=== PATIENT | female | born 1945 | race Caucasian/White ===

== ENCOUNTER 2016-10-14 | Outpatient (CLI) | payer MEDICARE | END 2016-10-14 19:59 | disposition critical access hospital (66) | CPT/HCPCS: A0425; A0427 ==

== ENCOUNTER 2016-10-14 20:32 | Emergency (ER) | payer MEDICARE ==
[2016-10-14] MEDS ORDERED: SODIUM CHLORIDE 0.9% 1,000 ML IV ONE (20:42)
[2016-10-14] MEDS ORDERED: ONDANSETRON ODT 4 MG TABLET TL STA (22:33)
[2016-10-14] MEDS ORDERED: BENZONATATE 100 MG CAPSULE PO STA (22:34)
[2016-10-14] MEDS ORDERED: BENZONATATE 100 MG CAPSULE PO ONE (22:37)
[2016-10-14] MEDS ORDERED: ONDANSETRON ODT 4 MG TABLET ONE (22:37)
== END 2016-10-14 23:10 | disposition home or self-care (01) ==
DX: I10 Essential (primary) hypertension (principal); K52.9 Noninfective gastroenteritis and colitis, unspecified
CPT/HCPCS: 36415; 71020; 80053; 81001; 83690; 83880; 84484; 85025; 99283; 99284; A9270; Q0162

== ENCOUNTER 2018-02-16 16:06 | Outpatient (CLI) | payer MEDICARE ==
[2018-02-16 16:33] LABS: CREATININE 0.9 mg/dL (0.4-1.0)
[2018-02-16] MEDS ORDERED: IOPAMIDOL-300 100 ML VIAL ONE (16:40)
[2018-02-16] MEDS ORDERED: IOPAMIDOL-300 100 ML VIAL IVP ONE (16:55)
--- NOTE | 2018-02-16 17:19 | CT Report ---
Procedure Date: 02/16/2018 Accession Number: [id number] / [id number] Procedure: CT - Chest W/ CPT Code: FULL RESULT: EXAM: CT CHEST EXAM DATE: 02/16/2018 04:58 PM. CLINICAL HISTORY: SARCOIDOSIS. COMPARISONS: None. TECHNIQUE: Routine helical CT imaging was performed through the chest. IV contrast: 80 cc Isovue 300. Reconstructions: Coronal and sagittal. In accordance with CT protocol optimization, one or more of the following dose reduction techniques were utilized for this exam: automated exposure control, adjustment of mA and/or KV based on patient size, or use of iterative reconstructive technique. FINDINGS: Lungs/Pleura: 8 mm nodule at the left base (4/47), somewhat linear and branching. No confluent consolidation or suspicious mass. No pleural effusions. No endobronchial or endotracheal lesion. Mediastinum: Imaged portions of the thyroid are grossly unremarkable. Thoracic aorta and main pulmonary artery are normal caliber.No central PE. Heart size is within normal limits. No pericardial effusion. Lymph Nodes: No mediastinal, hilar, or axillary adenopathy. Bones: No suspicious osseous lesions. 1.4 cm nodule in the right breast (3/28). Partially Imaged Upper Abdomen: Status post cholecystectomy. IMPRESSION: 1.4 cm nodule in the partially imaged right breast. Dedicated breast imaging is recommended. Neoplasm cannot be excluded. No CT signs of sarcoidosis. 8 mm nodule at the left base. Recommend follow-up CT scan in 3 months as per Fleischner criteria. RADIA
[2018-02-17] MEDS ORDERED: IOPAMIDOL-300 100 ML VIAL IVP ONE (16:16)
== END 2018-02-16 16:07 | disposition home or self-care (01) ==
LOC: LAB 16:06 → DI 16:07
PROVIDERS: ATTEND Specialist
DX: R91.1 Solitary pulmonary nodule (principal); N63.10 Unspecified lump in the right breast, unspecified quadrant
CPT/HCPCS: 36415; 71260; 82565

== ENCOUNTER 2019-05-16 13:26 | Outpatient (CLI) | payer MEDICARE ==
--- NOTE | 2019-05-17 09:39 | DEXA Report ---
Reason: POST-MENOPAUSAL Procedure Date: 05/16/2019 Accession Number: [id number] / [id number] Procedure: DEX - Dexa Spine and/or Hip CPT Code: FULL RESULT: EXAM: Dexa Spine and/or Hip DATE: 05/16/2019 2:11 PM CLINICAL HISTORY: POST-MENOPAUSAL. Rheumatoid arthritis, asthma. History of steroid use. TECHNIQUE: Dual energy x-ray absorptiometry (DXA) was performed on a [employer] System. Regions measured are the AP Spine, femoral neck, and if needed forearm. COMPARISON: None. In accordance with the International Society for Clinical Densitometry (ISCD) guidelines, data from previous exams may be reanalyzed using current recommendations and techniques. This is done to allow a more accurate basis for comparison with the current study. FINDINGS: The data for the lumbar spine is as follows: BMD (g/cm/cm) T-SCORE Z-SCORE REGION L1 1.380 2.1 2.6 L2 1.314 0.9 1.5 L3 1.453 2.1 2.7 L4 1.487 2.4 2.9 TOTAL 1.416 2.0 2.5 NOTE: All evaluable vertebrae are used for classification The data for the hip is as follows: BMD (g/cm/cm) T-SCORE Z-SCORE REGION Neck 0.869 -1.2 -0.1 TOTAL 0.924 -0.7 0.1 NOTE: The femoral neck or total proximal femur, whichever is lowest, is used for classification. IMPRESSION: THE WHO CLASSIFICATION BASED ON THE INTERNATIONAL REFERENCE STANDARD IS OSTEOPENIA, REFERENCE LEFT FEMORAL NECK. THE FRACTURE RISK IS INCREASED. RECOMMENDATION: Patients with diagnosis of osteoporosis or osteopenia should have regular bone mineral density assessment. For those eligible for Medicare, routine testing is allowed once every 2 years. Testing frequency can be increased for patients who have rapidly progressing disease or for those who are receiving medical therapy to restore bone mass. COMMENT: World Health Organization (WHO) definitions for osteoporosis and osteopenia: NORMAL BMD: T-score at -1.0 or higher, fracture risk is low OSTEOPENIA BMD: T-score between -1.0 and -2.5, fracture risk is increased. OSTEOPOROSIS BMD: T-score at -2.5 or lower, fracture risk is high. National Osteoporosis Foundation recommends: 1. Obtain adequate dietary calcium (at least 1200 mg per day) and vitamin D (400-800 international units per day). 2. Participate, as appropriate, in regular weightbearing and muscle-strengthening exercise. 3. Avoid tobacco use and reduce alcohol and caffeine intake. 4. For more detailed information see the website at www.NOF.org.
== END 2019-05-16 13:27 | disposition home or self-care (01) ==
LOC: DI 13:26
PROVIDERS: ATTEND Internal Medicine Hematology & Oncology
DX: M85.88 Other specified disorders of bone density and structure, other site (principal); C50.911 Malignant neoplasm of unspecified site of right female breast
CPT/HCPCS: 77080

== ENCOUNTER 2019-05-22 15:53 | Emergency (ER) | payer MEDICARE ==
[2019-05-22 16:17] LABS: BILIRUBIN,URINE NEGATIVE (NEGATIVE); GLUCOSE, URINE (UA) NEGATIVE (NEGATIVE); KETONES,URINE (UA) NEGATIVE (NEGATIVE); LEUKOCYTE ESTERASE, URINE LARGE (NEGATIVE); NITRITE,URINE NEGATIVE (NEGATIVE); OCCULT BLOOD,URINE LARGE (NEGATIVE); PH,URINE 6.5 PH (5.0-7.5); PROTEIN,URINE NEGATIVE (NEGATIVE); UROBILINOGEN,URINE 0.2 (NORMAL) E.U./dL (NORMAL)
[2019-05-22 16:19] LABS: CLARITY,URINE CLOUDY (CLEAR)
[2019-05-22 16:27] LABS: BACTERIA,URINE Moderate /HPF (None Seen); RBC,URINE TNTC /HPF (0-5); SQUAMOUS EPITHELIAL CELL,UR FEW Squamous (<= Few)
--- NOTE | 2019-05-22 16:31 | ED Physician Documentation ---
PD HPI FEMALE - Stated complaint Stated Complaint: FEM - Chief complaint Chief Complaint: General - History obtained from History obtained from: Patient - History of Present Illness Timing - onset: Yesterday Timing - duration: Days (1) Timing - details: Abrupt onset, Still present Associated symptoms: Dysuria, Urinary frequency. No: Fever, Vaginal discharge, Genital sore/lesion, Hematuria Similar symptoms before: Diagnosis (feels similar to prior UTIs) Recently seen: Not recently seen Review of Systems Constitutional: denies: Fever, Chills, Myalgias GI: denies: Abdominal Pain, Nausea, Vomiting, Diarrhea : reports: Dysuria, Frequency (with feeling of bladder spasms) Neurologic: denies: Generalized weakness, Near syncope, Altered mental status, Headache PD PAST MEDICAL HISTORY - Past Medical History Cardiovascular: Hypertension Respiratory: Asthma Neuro: Other Endocrine/Autoimmune: Other GI: Cholelithiasis : Other HEENT: Chronic hearing loss Psych: Depression Musculoskeletal: None, Other Derm: Psoriasis - Past Surgical History Past Surgical History: Yes General: Cholecystectomy /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: Tubal ligation - Present Medications Home Medications: Ambulatory Orders Medication Instructions Recorded Confirmed Lisinopril [Prinivil] 10 mg PO QPM 07/30/14 11/08/18 DULoxetine [Cymbalta] 20 mg PO DAILY 10/14/16 11/08/18 Acetaminophen [Tylenol] 650 mg PO Q6H PRN 06/14/18 11/08/18 Airborne 1 ea PO DAILY 06/14/18 11/08/18 Fluticasone [Flonase] 1 sprays RAN DAILY 06/14/18 11/08/18 Ibuprofen 200 mg PO Q6H PRN 06/14/18 11/08/18 Ketotifen Fumarate [Zaditor] 5 ml OP DAILY PRN 06/14/18 11/08/18 Naproxen 250 mg PO Q6H PRN 06/14/18 11/08/18 Phenazopyridine HCl [Pyridium] 100 mg PO TID PRN #10 tablet 05/22/19 Sulfamethox/Trimeth 800/160 1 each PO BID #14 tablet 05/22/19 [Bactrim Ds 800/160] - Allergies Allergies/Adverse Reactions: Allergies Allergy/AdvReac Type Severity Reaction Status Date / Time codeine Allergy Hives Verified 05/22/19 16:00 meperidine HCl * Allergy Nausea Verified 05/22/19 16:00 [From Demerol] nitrofurantoin Allergy Itching Verified 05/22/19 16:00 [From Macrobid] Penicillins Allergy Hives Verified 05/22/19 16:00 prednisone Allergy Respiratory Verified 05/22/19 16:00 Stainless Steel Allergy Unknown Uncoded 05/22/19 16:00 - Social History Does the pt smoke?: No Smoking Status: Former smoker Does the pt drink ETOH?: No Does the pt have substance abuse?: No - Immunizations Immunizations are current?: No Immunizations: TDAP current <10years - POLST Patient has POLST: No PD ED PE NORMAL - Vitals Vital signs reviewed: Yes - General General: Alert and oriented X 3, No acute distress, Well developed/nourished - Abdomen Abdomen: Soft, Non tender - Female Female : Deferred - Back Back: No CVA TTP - Derm Derm: Normal color, Warm and dry - Neuro Neuro: Alert and oriented X 3, No motor deficit, Normal speech Results - Vitals Vitals: Vital Signs - 24 hr 05/22/19 05/22/19 15:56 17:23 Temperature 36.3 C L Heart Rate 79 83 Respiratory 19 18 Rate Blood Pressure 143/75 H 137/68 H O2 Saturation 99 96 Oxygen O2 Source Room air - Labs Labs: Laboratory Tests 05/22/19 16:11 Urine Color LT. YELLOW Urine Clarity CLOUDY Urine pH 6.5 Ur Specific Gillespie <=1.005 Urine Protein NEGATIVE Urine Glucose (UA) NEGATIVE Urine Ketones NEGATIVE Urine Occult Blood LARGE H Urine Nitrite NEGATIVE Urine Bilirubin NEGATIVE Urine Urobilinogen 0.2 (NORMAL) Ur Leukocyte Esterase LARGE H Urine RBC TNTC H Urine WBC >25 H Ur Squamous Epith Cells FEW Squamous Urine Bacteria Moderate H Ur Microscopic Review INDICATED Urine Culture Comments INDICATED PD MEDICAL DECISION MAKING - ED course Complexity details: reviewed results, considered differential, d/w patient Departure - Departure Disposition: 01 Home, Self Care Clinical Impression: Dysuria UTI (urinary tract infection) Qualifiers: Urinary tract infection type: acute cystitis Hematuria presence: without hematuria Qualified Code(s): N30.00 - Acute cystitis without hematuria Condition: Stable Record reviewed to determine appropriate education?: Yes Instructions: ED UTI Cystitis Female Prescriptions: Phenazopyridine HCl [Pyridium] 100 mg PO TID PRN #10 tablet PRN Reason: Abdominal Pain Sulfamethox/Trimeth 800/160 [Bactrim Ds 800/160] 1 each PO BID #14 tablet Comments: Stay well-hydrated. Use Tylenol or ibuprofen if needed for discomfort. Phenazopyridine can help with some of the symptoms as well. It may turn your urine a little orange-colored so not to worry. Look like your previous allergy was to an antibiotic called nitrofurantoin. We will use Septra antibiotic twice daily for a week. Recheck if not improved over the next few days. Your prescriptions were transmitted to [facility] in [facility]. Discharge Date/Time: 05/22/19 17:24
[2019-05-22] MEDS ORDERED: PHENAZOPYRIDINE 100 MG TABLET PO STA (16:58)
[2019-05-22] MEDS ORDERED: SULFAMETH/TRIMETH DS 800/160 MG TABLET PO STA (16:58)
[2019-05-22 17:24] VITALS: BP 137/68
== END 2019-05-22 17:24 | disposition home or self-care (01) ==
LOC: ED 15:53
DX: N30.00 Acute cystitis without hematuria (principal); I10 Essential (primary) hypertension; Z87.891 Personal history of nicotine dependence
CPT/HCPCS: 81001; 87086; 99283; A9270; 81003

== ENCOUNTER 2019-08-15 13:45 | Outpatient (CLI) | payer MEDICARE ==
--- NOTE | 2019-08-15 15:41 | Mammography Report ---
Reason: RT BREAST CA Procedure Date: 08/15/2019 Accession Number: [id number] / [id number] Procedure: ANN - Diagnostic Dig Bilat CPT Code: Final Report FULL RESULT: EXAM: Diagnostic Dig Bilat DATE: 08/15/2019 2:32 PM CLINICAL HISTORY: Diagnostic examination. Personal history of right breast cancer status post lumpectomy August 2018. TECHNIQUE: (B) - Bilateral CC and MLO views were obtained. Right spot magnified CC, left medially exaggerated CC, right ML and right spot magnified ML views are obtained. COMPARISON: 05/03/2018. PARENCHYMAL PATTERN: (A) - The breast(s) demonstrate(s) scattered fibroglandular densities. FINDINGS: Postsurgical and posttreatment changes are seen in the right breast, probably benign. There are no suspicious masses, calcifications, or areas of distortion. IMPRESSION: Probably Benign. BI-RADS category 3. RECOMMENDATION: (6MOS) - Recommend 6 month follow-up exam. Diagnostic mammogram right breast. BI-RADS CATEGORY: (3) - Probably Benign. STANDARD QUALIFYING STATEMENTS: 1. This examination was not reviewed with the aid of Computer-Aided Detection (CAD). 2. A negative or benign imaging report should not preclude biopsy if clinically suspicious findings are present. 3. Dense breasts may obscure an underlying neoplasm. 4. This examination was reviewed with the aid of 3D breast imaging (tomosynthesis).
== END 2019-08-15 13:46 | disposition home or self-care (01) ==
LOC: DI 13:45
PROVIDERS: ATTEND Internal Medicine Hematology & Oncology
DX: C50.911 Malignant neoplasm of unspecified site of right female breast (principal); Z17.0 Estrogen receptor positive status [ER+]
CPT/HCPCS: 77066

== ENCOUNTER 2019-09-02 00:13 | Outpatient (CLI) | payer MEDICARE | END 2019-09-02 00:14 | disposition critical access hospital (66) | LOC: EMS 00:13 | PROVIDERS: ATTEND Surgery | DX: R53.81 Other malaise (principal); R11.2 Nausea with vomiting, unspecified; R00.0 Tachycardia, unspecified; R07.89 Other chest pain | CPT/HCPCS: A0425; A0427 ==

== ENCOUNTER 2019-09-02 00:48 | Emergency (ER) | payer MEDICARE ==
--- NOTE | 2019-09-02 01:08 | ED Physician Documentation ---
PD HPI CHEST PAIN - Stated complaint Stated Complaint: SHINGLES - Chief complaint Chief Complaint: General - History obtained from History obtained from: Patient, EMS - History of Present Illness Timing - onset: How many days ago (not feeling well for 3-4 days, with malaise, weakness, and right chest pain. Started with rash couple days ago and seen by PCP. Rx with Valacyclovir and hydrocodone. Having nausea and vomiting the past day since starting the meds. Tonight having feeling of heart rate going fast and skipping/irregular.) Timing - onset during: Light activity Timing - duration: Days Timing - details: Gradual onset, Waxing and waning Quality: Tightness (central chest), Pain (right chest from shingles). No: Pressure Location: Substernal, Right chest Worsened by: Movement, Palpation. No: Inspiration, Eating Associated symptoms: Palpitations. No: Shortness of air, Cough Recently seen: Clinic (Rx with shingles right chest and Rx meds 2 days ago) Review of Systems Constitutional: reports: Myalgias, Fatigue. denies: Fever, Chills Nose: denies: Rhinorrhea / runny nose, Congestion Throat: denies: Sore throat Cardiac: reports: Chest pain / pressure, Palpitations. denies: Pedal edema, Calf pain Respiratory: denies: Cough GI: reports: Nausea, Vomiting. 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 - Past Surgical History Past Surgical History: Yes General: Cholecystectomy /CLIENT RELATIONS REPRESENTATIVE: Tubal ligation - Present Medications Home Medications: Ambulatory Orders Medication Instructions Recorded Confirmed Lisinopril [Prinivil] 10 mg PO QPM 07/30/14 09/02/19 Acetaminophen [Tylenol] 650 mg PO Q6H PRN 06/14/18 09/02/19 Fluticasone [Flonase] 1 sprays RAN DAILY 06/14/18 09/02/19 Ibuprofen 200 mg PO Q6H PRN 06/14/18 09/02/19 Citalopram Hydrobromide [Celexa] 40 mg PO DAILY 05/23/19 09/02/19 DULoxetine [Cymbalta] 40 mg PO DAILY 09/02/19 09/02/19 Ondansetron Odt [Zofran] 4 mg TL Q6H PRN #20 tablet 09/02/19 dexAMETHasone [Decadron] 4 mg PO DAILY #5 tablet 09/02/19 - Allergies Allergies/Adverse Reactions: Allergies Allergy/AdvReac Type Severity Reaction Status Date / Time codeine Allergy Hives Verified 09/02/19 00:57 meperidine HCl * Allergy Nausea Verified 09/02/19 00:57 [From Demerol] nitrofurantoin Allergy Itching Verified 09/02/19 00:57 [From Macrobid] Penicillins Allergy Hives Verified 09/02/19 00:57 prednisone Allergy Respiratory Verified 09/02/19 00:57 Stainless Steel Allergy Unknown Uncoded 05/23/19 15:38 - Social History Does the pt smoke?: No Smoking Status: Never smoker Does the pt drink ETOH?: No Does the pt have substance abuse?: No - Immunizations Immunizations are current?: No Immunizations: TDAP current <10years - POLST Patient has POLST: No PD ED PE NORMAL - Vitals Vital signs reviewed: Yes - General General: Alert and oriented X 3, No acute distress, Well developed/nourished - HEENT HEENT: Pharynx benign. No: Moist mucous membranes - Neck Neck: Supple, no meningeal sign, No adenopathy - Cardiac Cardiac: RRR, No murmur - Respiratory Respiratory: Clear bilaterally, Other (right chest with shingles appearing vesicular rash in band from mid abd above the umbilicus around to right flank T8 level. ) - Abdomen Abdomen: Soft, Other (tender in the shingles area. Not tender elsewhere in the abd. ) - Back Back: No CVA TTP - Derm Derm: Normal color, Warm and dry - Extremities Extremities: No tenderness to palpate, Normal ROM s pain, No edema, No calf tenderness / cord - Neuro Neuro: Alert and oriented X 3, No motor deficit, Normal speech Results - Vitals Vitals: Vital Signs - 24 hr 09/02/19 09/02/19 09/02/19 00:54 01:32 02:20 Temperature 36.3 C L Heart Rate 106 H 80 85 Respiratory 17 17 16 Rate Blood Pressure 145/87 H 150/78 H 162/83 H O2 Saturation 95 96 96 Oxygen O2 Source Room air - Labs Labs: Laboratory Tests 09/02/19 09/02/19 09/02/19 01:30 01:30 01:30 WBC 7.3 RBC 4.32 Hgb 13.6 Hct 39.9 MCV 92.4 MCH 31.5 H MCHC 34.1 RDW 12.2 Plt Count 223 MPV 9.9 Neut # (Auto) 5.4 Lymph # (Auto) 0.8 L [place] # (Auto) 0.9 Eos # (Auto) 0.1 Baso # (Auto) 0.0 Absolute Nucleated RBC 0.00 Nucleated RBC % 0.0 Sodium 127 L Potassium 3.9 Chloride 92 L Carbon Dioxide 29 Anion Gap 6.0 BUN 14 Creatinine 0.7 Estimated GFR (MDRD) 82 L Glucose 122 H Calcium 8.1 L Magnesium 1.7 Total Bilirubin 1.3 H AST 17 ALT 19 Alkaline Phosphatase 63 Troponin I High Sens 5.1 Total Protein 6.1 L Albumin 3.0 L Globulin 3.1 Albumin/Globulin Ratio 1.0 Lipase 43 Departure - Departure Disposition: 01 Home, Self Care Clinical Impression: Medication side effects, Dehydration Nausea & vomiting Qualifiers: Vomiting type: unspecified Vomiting Intractability: non-intractable Qualified Code(s): R11.2 - Nausea with vomiting, unspecified Shingles Qualifiers: Herpes zoster complications: without complications Qualified Code(s): B02.9 - Zoster without complications Condition: Stable Record reviewed to determine appropriate education?: Yes Instructions: ED Nausea Vomiting, ED Shingles Prescriptions: dexAMETHasone [Decadron] 4 mg PO DAILY #5 tablet Ondansetron Odt [Zofran] 4 mg TL Q6H PRN #20 tablet PRN Reason: Nausea / Vomiting Comments: The valacyclovir will be of benefit if you are able to take it as it will decrease the degree of shingles symptoms and outbreak. However if it or the hydrocodone are causing excess nausea and vomiting then the trade off benefit is replaced by the side effects there may not be worth it. Use the ondansetron prior to the medications and see if you are able to tolerate the medicines well. Take them with food as well. If you are able to medicate without any nausea and vomiting, then continue the prescriptions. If you seem to be getting still a lot of nausea related to either the hydrocodone or the valacyclovir, then discontinue whichever medicine. I would also suggest adding Decadron steroid daily for 5 days. This will be short course and a low dose and can help with the nausea and also decrease some of the nerve inflammation related to the shingles. You can also use Tylenol 500 mg 3 or 4 times a day as a baseline pain medicine. To that add the hydrocodone if needed. Follow-up with your primary care next week. Return to the ER sooner if worsening.
[2019-09-02] MEDS ORDERED: PROMETHAZINE INJ 12.5 MG in SODIUM CHLORIDE 0.9% 50 ML IV STA (01:09)
[2019-09-02] MEDS ORDERED: DEXAMETHASONE 10 MG/ML VIAL IVP STA (01:09)
[2019-09-02] MEDS ORDERED: SODIUM CHLORIDE 0.9% 1,000 ML IV ONE (01:09)
[2019-09-02] MEDS ORDERED: ACETAMINOPHEN 1,000 MG/100 ML 100 ML IV STA (01:10)
[2019-09-02 01:38] LABS: BASOPHILS % (AUTO) 0.5 %; EOSINOPHILS # (AUTO) 0.1 10^3/uL (0.0-0.7); EOSINOPHILS % (AUTO) 1.5 %; HGB - HEMOGLOBIN 13.6 g/dL (12.0-16.0); LYMPHOCYTES # (AUTO) 0.8 10^3/uL (1.5-3.5); LYMPHOCYTES % (AUTO) 10.3 %; MEAN CORPUSCULAR HEMOGLOBIN 31.5 pg (27.0-31.0); MEAN CORPUSCULAR HGB CONC 34.1 g/dL (32.0-36.0); MEAN CORPUSCULAR VOLUME 92.4 fL (81.0-99.0); MEAN PLATELET VOLUME 9.9 fL (7.9-10.8); MONOCYTES # (AUTO) 0.9 10^3/uL (0.0-1.0); MONOCYTES % (AUTO) 12.8 %; NEUTROPHILS # (AUTO) 5.4 10^3/uL (1.5-6.6); NEUTROPHILS % (AUTO) 74.5 %; PLT - PLATELET COUNT 223 10^3/uL (130-450); RED BLOOD COUNT 4.32 10^6/uL (4.20-5.40); RED CELL DISTRIBUTION WIDTH 12.2 % (12.0-15.0); WHITE BLOOD COUNT 7.3 x10^3/uL (4.8-10.8)
[2019-09-02 01:48] LABS: BILIRUBIN,TOTAL 1.3 mg/dL (0.2-1.0); CALCIUM 8.1 mg/dL (8.5-10.3); CREATININE 0.7 mg/dL (0.4-1.0); MAGNESIUM 1.7 mg/dL (1.7-2.8); TOTAL PROTEIN 6.1 g/dL (6.7-8.2)
[2019-09-02] MEDS ORDERED: ONDANSETRON ODT 4 MG Prepack 2 TL PRN (03:05)
[2019-09-02 03:18] VITALS: BP 165/93
== END 2019-09-02 04:15 | disposition home or self-care (01) ==
LOC: EDUNIT# → ED 00:48
DX: E86.0 Dehydration (principal); T50.905A Adverse effect of unspecified drugs, medicaments and biological substances, initial encounter; I10 Essential (primary) hypertension; R11.2 Nausea with vomiting, unspecified; B02.9 Zoster without complications
CPT/HCPCS: 36415; 80053; 83690; 83735; 84484; 85025; 93005; 96365; 96368; 96375; 99284; J0131; J7040

== ENCOUNTER 2019-11-01 07:47 | Inpatient (IN) | payer MEDICARE ==
--- NOTE | 2019-11-01 08:16 | ED Physician Documentation ---
PD HPI DYSPNEA - Stated complaint Stated Complaint: SOA - Chief complaint Chief Complaint: Cardiac - History obtained from History obtained from: Patient - History of Present Illness Timing - onset: How many weeks ago (She is noted about 3 weeks of progressive worst dyspnea associated with orthopnea and leg edema. She had been having some element of dyspnea for the past 6 to 10 months and it seemed related to some scar tissue from radiation for breast cancer in the recent past before that. She had been trialed with albuterol inhaler without much improvement. Sounds like she may have had some pulmonary function tests. She has a referral to pulmonology upcoming but the appointment is not until next month. Atop the dyspnea for those many months, she is now having worsening dyspnea associated with the edema and such over the last 3 weeks. No fevers or sputum production.) Timing - onset during: Light activity Timing - duration: Weeks (3) Timing - details: Gradual onset, Still present Inciting event(s): No: Out of meds, URI, Immobilization/travel Improved by: Rest, Sitting up. No: Inhaler/neb Worsened by: Exertion, Laying flat Associated symptoms: Cough, Bilateral edema. No: Fever, Hemoptysis, Wheezing, Chest pain / discomfort, Palpitations Similar symptoms before: No diagnosis Recently seen: Clinic (Seen by her primary care about a month ago with referral to pulmonology. She had not really had the leg edema at that time.) Review of Systems Constitutional: denies: Fever, Chills Nose: denies: Rhinorrhea / runny nose, Congestion Throat: denies: Sore throat Cardiac: reports: Pedal edema. denies: Chest pain / pressure, Palpitations, Peterson f pain Respiratory: reports: Dyspnea, Cough. denies: Wheezing GI: denies: Abdominal Pain, Nausea, Vomiting, Diarrhea, Bloody / black stool Musculoskeletal: denies: Neck pain, Back pain Neurologic: reports: Generalized weakness. denies: Focal weakness, Numbness, Near syncope Psychiatric: denies: Anxiety Endocrine: reports: Weight gain PD PAST MEDICAL HISTORY - Past Medical History Past Medical History: Yes Cardiovascular: Hypertension Respiratory: Asthma, Other Neuro: Other Endocrine/Autoimmune: Other GI: Cholelithiasis CONSERVATION ENGINEER: None, Breast cancer : Other HEENT: Chronic hearing loss Psych: Depression Musculoskeletal: Other Derm: Psoriasis - Past Surgical History Past Surgical History: Yes General: Cholecystectomy /CONSERVATION ENGINEER: Tubal ligation - Present Medications Home Medications: Ambulatory Orders Medication Instructions Recorded Confirmed Lisinopril [Prinivil] 10 mg PO QPM 07/30/14 09/02/19 Acetaminophen [Tylenol] 650 mg PO Q6H PRN 06/14/18 09/02/19 Fluticasone [Flonase] 1 sprays RAN DAILY 06/14/18 09/02/19 Ibuprofen 200 mg PO Q6H PRN 06/14/18 09/02/19 Citalopram Hydrobromide [Celexa] 40 mg PO DAILY 05/23/19 09/02/19 Ondansetron Odt [Zofran] 4 mg TL Q6H PRN #20 tablet 09/02/19 Beclomethasone 40 Mcg [Qvar 40] 0 puffs DAILY 11/01/19 11/01/19 - Allergies Allergies/Adverse Reactions: Allergies Allergy/AdvReac Type Severity Reaction Status Date / Time codeine Allergy Hives Verified 09/02/19 00:57 meperidine HCl * Allergy Nausea Verified 09/02/19 00:57 [From Demerol] nitrofurantoin Allergy Itching Verified 09/02/19 00:57 [From Macrobid] Penicillins Allergy Hives Verified 09/02/19 00:57 prednisone Allergy Respiratory Verified 09/02/19 00:57 Stainless Steel Allergy Unknown Uncoded 05/23/19 15:38 - Living Situation Living Situation: reports: Alone Living Arrangement: reports: At home - Social History Does the pt smoke?: No Smoking Status: Never smoker Does the pt drink ETOH?: No Does the pt have substance abuse?: No - Family History Family history: reports: CAD - Immunizations Immunizations are current?: No Immunizations: TDAP current <10years - POLST Patient has POLST: No PD ED PE NORMAL - Vitals Vital signs reviewed: Yes - General General: Alert and oriented X 3, Well developed/nourished - HEENT HEENT: Moist mucous membranes, Pharynx benign - Neck Neck: Supple, no meningeal sign, No adenopathy - Cardiac Cardiac: No murmur, No rub. No: RRR (irregular and tachycardic) - Respiratory Respiratory: No respiratory distress. No: Clear bilaterally (There is some crackles noted at both lung bases about a third of the way up. There is no work of breathing. She is able to talk in sentences.) - Abdomen Abdomen: Soft, Non tender - Female Female : Deferred - Rectal Rectal: Deferred - Back Back: No CVA TTP - Derm Derm: Normal color, Warm and dry - Extremities Extremities: No calf tenderness / cord, Other (2-3+ pedal edema in both legs up to the level of the knees. It is pitting. There is no calf tenderness.) - Neuro Neuro: Alert and oriented X 3, No motor deficit, No sensory deficit Eye Opening: Spontaneous Motor: Obeys Commands Verbal: Oriented GCS Score: 15 Results - Vitals Vitals: Vital Signs - 24 hr 11/01/19 11/01/19 08:00 08:30 Temperature 36.4 C L Heart Rate 133 H 122 H Respiratory 20 20 Rate Blood Pressure 125/95 H 118/76 O2 Saturation 97 98 Oxygen O2 Source Room air - EKG (time done) 07:56 Rate: Rate (enter#) (134) Rhythm: Atrial fibrillation Rawson: Normal QRS: Low voltage Ischemia: Normal ST segments. No: ST elevation c/w ischemia, ST depression Compare to prior EKG: Old EKG unavailable - Labs Labs: Laboratory Tests 11/01/19 11/01/19 11/01/19 08:11 08:11 08:11 WBC 6.2 RBC 4.36 Hgb 13.4 Hct 40.9 MCV 93.8 MCH 30.7 MCHC 32.8 RDW 12.8 Plt Count 257 MPV 10.6 Neut # (Auto) 3.2 Lymph # (Auto) 1.7 [place] # (Auto) 1.0 Eos # (Auto) 0.2 Baso # (Auto) 0.1 Absolute Nucleated RBC 0.00 Nucleated RBC % 0.0 Sodium 134 L Potassium 4.4 Chloride 98 L Carbon Dioxide 25 Anion Gap 11.0 BUN 17 Creatinine 0.9 Estimated GFR (MDRD) 61 L Glucose 102 H Calcium 8.9 Magnesium 1.9 Total Bilirubin 1.5 H AST 22 ALT 18 Alkaline Phosphatase 63 Troponin I High Sens 6.1 B-Natriuretic Peptide Total Protein 6.8 Albumin 3.5 Globulin 3.3 Albumin/Globulin Ratio 1.1 Lipase 32 TSH 11/01/19 11/01/19 08:11 08:11 WBC RBC Hgb Hct MCV MCH MCHC RDW Plt Count MPV Neut # (Auto) Lymph # (Auto) [place] # (Auto) Eos # (Auto) Baso # (Auto) Absolute Nucleated RBC Nucleated RBC % Sodium Potassium Chloride Carbon Dioxide Anion Gap BUN Creatinine Estimated GFR (MDRD) Glucose Calcium Magnesium Total Bilirubin AST ALT Alkaline Phosphatase Troponin I High Sens B-Natriuretic Peptide 195 H Total Protein Albumin Globulin Albumin/Globulin Ratio Lipase TSH 3.00 - Rads (name of study) chest xray Radiology: Prelim report reviewed, Other PD MEDICAL DECISION MAKING - ED course Complexity details: reviewed results, considered differential (Apparent new onset atrial fibrillation with congestive heart failure and edema. Her troponin is negative. Clinically she does seem to be in congestive failure. I would assume her new onset A. fib is been over the last few weeks during which she developed the edema and heart failure as well. There is likely some underlying lung component to the dyspnea that is been going on for the many months. However the new process seems to be added on with the fibrillation and poor rate control. This will need further investigating as well as ensuring proper rate control outpatient. As such she will need to be better regulated and medicated here in the hospital and further evaluation with echo and/or stress testing. I talked with the hospitalist who is in agreement for having the patient in.), d/w patient, d/w peoplesoft consultant Departure - Departure Disposition: ED Place in Observation Clinical Impression: Atrial fibrillation with rapid ventricular response, New onset atrial fibrillation CHF (congestive heart failure) Qualifiers: Heart failure type: unspecified Heart failure chronicity: acute Qualified Code(s): I50.9 - Heart failure, unspecified Dyspnea Qualifiers: Dyspnea type: dyspnea on exertion Qualified Code(s): R06.09 - Other forms of dyspnea Condition: Stable Record reviewed to determine appropriate education?: Yes
--- NOTE | 2019-11-01 08:28 | XRAY Report ---
Reason: Chest pain Procedure Date: 11/01/2019 Accession Number: [id number] / [id number] Procedure: XR - Chest 1 View X-Ray CPT Code: 22741 Final Report FULL RESULT: EXAM: CHEST RADIOGRAPHY 1 VIEW EXAM DATE: 11/01/2019. CLINICAL HISTORY: Chest pain. COMPARISON: PA and lateral chest done 10/14/2016. TECHNIQUE: AP upright portable chest at 0801. FINDINGS: Lungs/Pleura: The lungs are hypoinflated. Mild distention of the upper lobe vasculature. Hazy opacity in the left lower chest. Linear opacity extending from the superior right hilum into the right upper lung. Slight blunting of the cost phrenic angles consistent with pleural fluid. No pneumothorax. Mediastinum: Heart is near the upper limits of normal in size. Otherwise normal mediastinal contours. Atherosclerosis of the aorta. Bones: Degenerative changes of the spine. IMPRESSION: Pulmonary hypoinflation. Pulmonary vasculature appears mildly distended; this could be from mild congestive heart failure or fluid overload, or artifact secondary to hypoinflation. Small bilateral pleural effusions. Increased opacity of the left lower lung consistent with atelectasis or pneumonia. Right upper lung diskoid atelectasis. RADIA
[2019-11-01 08:50] LABS: ALBUMIN 3.5 g/dL (3.2-5.5); ALBUMIN/GLOBULIN RATIO 1.1 (1.0-2.2); BILIRUBIN,TOTAL 1.5 mg/dL (0.2-1.0); CALCIUM 8.9 mg/dL (8.5-10.3); CREATININE 0.9 mg/dL (0.4-1.0); MAGNESIUM 1.9 mg/dL (1.7-2.8); TOTAL PROTEIN 6.8 g/dL (6.7-8.2)
[2019-11-01 08:51] LABS: BASOPHILS # (AUTO) 0.1 10^3/uL (0.0-0.1); EOSINOPHILS # (AUTO) 0.2 10^3/uL (0.0-0.7); EOSINOPHILS % (AUTO) 3.7 %; HGB - HEMOGLOBIN 13.4 g/dL (12.0-16.0); LYMPHOCYTES # (AUTO) 1.7 10^3/uL (1.5-3.5); LYMPHOCYTES % (AUTO) 27.4 %; MEAN CORPUSCULAR HEMOGLOBIN 30.7 pg (27.0-31.0); MEAN CORPUSCULAR HGB CONC 32.8 g/dL (32.0-36.0); MEAN CORPUSCULAR VOLUME 93.8 fL (81.0-99.0); MEAN PLATELET VOLUME 10.6 fL (7.9-10.8); MONOCYTES % (AUTO) 15.6 %; NEUTROPHILS # (AUTO) 3.2 10^3/uL (1.5-6.6); NEUTROPHILS % (AUTO) 51.5 %; PLT - PLATELET COUNT 257 10^3/uL (130-450); RED BLOOD COUNT 4.36 10^6/uL (4.20-5.40); RED CELL DISTRIBUTION WIDTH 12.8 % (12.0-15.0); WHITE BLOOD COUNT 6.2 x10^3/uL (4.8-10.8)
[2019-11-01] MEDS ORDERED: FUROSEMIDE 40 MG/4 ML VIAL IVP STA (09:07)
[2019-11-01] MEDS ORDERED: diltiaZEM INJ 5 MG/ML VIAL IVP STA ×2 (09:07→09:43)
[2019-11-01] MEDS ORDERED: IOVERSOL 320 100 ML VIAL IVP ONE ×2 (11:35→13:07)
[2019-11-01] MEDS: ENOXAPARIN 40 MG/0.4 ML SYRINGE SUBQ SCH (12:19)
[2019-11-01 13:11] LABS: INR 1.2 (0.8-1.2); PT - PROTHROMBIN TIME 13.3 secs (9.9-12.6)
[2019-11-01] MEDS: FUROSEMIDE 20 MG/2 ML VIAL IVP SCH (13:41)
[2019-11-01] MEDS: methylPREDNISolone SUCCINATE 40 MG/ML VIAL IVP SCH ×2 (14:17→22:04)
[2019-11-01] MEDS: ASPIRIN EC 81 MG TABLET PO SCH (14:17)
[2019-11-01] MEDS ORDERED: GABAPENTIN 300 MG CAPSULE PO ONE (15:05)
--- NOTE | 2019-11-01 15:32 | HISTORY & PHYSICAL EXAMINATION ---
DATE OF SERVICE: 11/01/2019 Physician: Caryn Salguero MD HISTORY OF PRESENT ILLNESS: This is a 73-year-old white female with a history of hypertension, on lisinopril, asthma since childhood with exacerbations that are seasonal and a history of sarcoidosis, diagnosed over 10 years ago when she had uveitis and pulmonary nodules. Over these many years, she has required several steroid burst treatments for management. The patient has a history of breast cancer and underwent radiation therapy 1 year ago and then describes that she developed right-sided bronchial disease with plugging and focal edema related to the radiation treatment. She has been waiting to see a electric relay tester for PFTs and a pulmonary stress test and this is scheduled to come up next month. The patient states that since January of last year, she has been slowly getting dyspnea on exertion. 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 Over the last 1 month, she is short of breath just walking in her house. Over the last 2 weeks, she has extreme dyspnea even at rest, plus orthopnea and 2 weeks of worsening leg edema. Her left leg has always been swollen since an extensive episiotomy was done when she had a breech delivery of one of her children. But now, both legs have swelling all the way up to her thighs. She has not seen her PCP regarding these new complaints over these 2 weeks. Last night while taking a shower, she says that breathing humid air gave her marked air hunger, she needed to go outside to breath cold air but waited until today to come to the emergency room. In the ER, she was found to have new onset of atrial fibrillation with rapid ventricular rate of 130-140, and chest x-ray showed fluid overload. She received IV diltiazem IV pushes x2 and heart rate decreased only briefly to the 90-100 range and is back up to 130. She also received one dose of Lasix IV and has had slight improvement in the overall shortness of breath at rest. She is being placed in Observation for management of her shortness of breath, volume overload, and new onset of atrial fibrillation with rapid ventricular response. PAST MEDICAL HISTORY: Asthma since childhood, history of hypertension, sarcoidosis with history of uveitis involvement, breast cancer with radiation 1 year ago, chronic left leg edema. ALLERGIES: 1. CODEINE CAUSED HIVES. 2. PENICILLIN CAUSED HIVES. 3. DEMEROL CAUSED NAUSEA. 4. MACROBID CAUSED ITCHING 5. She lists allergic reactions to PREDNISONE and STAINLESS STEEL, but she has used prednisone multiple times when she gets steroid bursts and tapers and uses intranasal steroids however. MEDICATIONS: 1. QVAR inhaler daily. 2. Zofran p.r.n. 3. Lisinopril 10 mg every night. 4. Ibuprofen 200 mg p.r.n. 5. Flonase nasal spray daily during spring. 6. Celexa 40 mg daily. 7. Tylenol p.r.n. pain. 8. Gabapentin 600 mg tid FAMILY HISTORY: Positive for lung disease in her mother and heart disease in her father. She has 4 children, who are overall healthy except for accidents. SOCIAL HISTORY: She was never a smoker chronically, but intermittently took it up in her life; the last cigarette was over 20 years ago. She drinks no alcohol, "because fermented alcohol products make her short of breath therefore she must be allergic to something, but not distilled alcohol products". There is no illicit drug use history. The patient lives alone with some pets. 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 REVIEW OF SYSTEMS: The patient describes having had Shingles 2 months ago and continued pain in the right upper lateral dermatome for which she takes Gabapentin on a schedule. She describes chest pain that has slowly started over the past 1-2 months and it is only when she lies in the right-lateral decubitus position in bed or if supine, improved if she sits up/forward. She has never needed a stress test. She does not feel palpitations. There has been no wheezing or fever, a slight cough without sputum production, with her worsening shortness of breath. The patient states she gets chest x-rays once a year to watch for "lung nodule" because of her sarcoid history, but has not had a electric relay tester until the coming up next month. A comprehensive review of systems was performed, the pertinent positives are listed, the rest are negative. PHYSICAL EXAMINATION: GENERAL: White female who appears younger than her age. She has mild shortness of breath with speaking and she is sitting forward, is short of breath if she is supine. VITAL SIGNS: Blood pressure 125/61, heart rate 110 in atrial fibrillation, temperature 36.4 Centigrade, respiratory rate 26, now down to 19, room air saturation 94-96% on room air. HEENT: Reveals moist oral mucosa and good dentition. NECK: Without JVD in a vertical position and no HJR. No carotid bruits. CHEST: Diminished breath sounds diffusely. No rales, rhonchi or wheezing. HEART: Tachycardic, irregularly irregular, 1-2/6 systolic murmur at the lower left sternal border. ABDOMEN: Soft, nontender. EXTREMITIES: 4+ edema to the upper thighs bilaterally, left foot edema is worse than right foot edema. NEUROLOGIC: Grossly intact. LABORATORY DATA: Sodium 134, potassium 4.4, BUN 17, creatinine 0.9, magnesium 1.9. Normal liver tests. Troponin high sensitivity 6.1. TSH normal at 3.0. BNP mildly elevated at 195. CBC entirely normal. INR 1.2. D-dimer elevated at 290. EKG: Atrial fibrillation with rate of 134 with low voltage in diffuse all leads. The old EKG showed sinus rhythm and normal voltage, and was from approximately 2 years ago. IMAGING: Chest x-ray upper limit of normal cardiac silhouette size, and there is fluid overload noted with vascular congestion, and also small bilateral pleural effusions. IMPRESSION/DIAGNOSES: 1. Atrial fibrillation with rapid ventricular response. 2. Shortness of breath. 3. Atypical chest pain, worsened by body position; this description is rather typical for pericarditis. 4. Leg edema. 5. History of asthma. 6. Sarcoidosis 7. History of breast cancer. 8. History of hypertension. 9. Pain associated with herpes zoster. PLAN: Place the patient in Observation status on Telemetry. Continue with rate control medications using p.o. Cardizem, if her blood pressure will tolerate it. Continue with IV b.i.d. diuretics and follow her I's and O's and weights. Follow her electrolytes and magnesium. Cycle troponins to look for an increase. Follow her BNP daily. Hypothyroidism has already been ruled out with a normal TSH. Obtain an Echo to evaluate LV and RV contractility, pulmonary pressure and evaluate for pericardial effusion. Obtain a CT chest angiogram to evaluate for pulmonary embolism, evaluate for any nodules, and the size of the pericardial effusion. Based on the Echo, her CHADS score will be determined. At this time, she is only positive for one CHADS factor and that is hypertension, and therefore daily aspirin would be her stroke prophylaxis treatment. CODE STATUS: FULL CODE. DEEP VENOUS THROMBOSIS PROPHYLAXIS: Pharmacotherapy with Lovenox. ATTESTATION: The patient is expected to be discharged or transferred to another facility within 96 hours: Yes. cc: Ab Torres MD TD: 11/01/2019 14:35 MTDD
--- NOTE | 2019-11-01 15:43 | CT Report ---
Reason: elevate D dimer Procedure Date: 11/01/2019 Accession Number: [id number] / [id number] Procedure: CT - ANGIO CHEST W/WO CPT Code: Final Report FULL RESULT: EXAM: CT ANGIOGRAM CHEST EXAM DATE: 11/01/2019 01:21 PM. CLINICAL HISTORY: Elevate D dimer. COMPARISON: CHEST W/ 02/16/2018 4:53 PM. TECHNIQUE: Routine helical imaging was performed through the chest in the pulmonary arterial phase. IV Contrast: OPTI 320 80ML. Reconstructions: Coronal 3-D MIP reconstructions. Sagittal and coronal. In accordance with CT protocol optimization, one or more of the following dose reduction techniques were utilized for this exam: automated exposure control, adjustment of mA and/or KV based on patient size, or use of iterative reconstructive technique. FINDINGS: Pulmonary Arteries: Diagnostic quality: Adequate through the segmental arteries. No evidence for acute or chronic pulmonary emboli. RV/LV is within normal limits. There is no interventricular septal bowing. There is no reflux of contrast material in the IVC. Lungs/Pleura: A consolidative opacity seen in left lower lobe. Small ill-defined consolidative opacity seen in subpleural right upper lobe. Findings are most consistent with left lower lobe pneumonia and perhaps resolving pneumonia in right upper lobe. Malignancies cannot be excluded. Three 5 mm nodules are seen in right lower lobe (image 97, 107 on series 6). Two 4 mm nodules are seen in the right lower lobe as well (image 120, 99 on series 6. Findings concerning for metastatic disease. Mediastinum: Mediastinal lymph nodes noted, largest in subcarinal station measuring 13 mm. Trace circumferential pericardial effusion. No cardiac enlargement. Thoracic Aorta: Unremarkable. Upper Abdomen: Postcholecystectomy. Other: None. IMPRESSION: No pulmonary emboli. A consolidative opacity in left lower lobe, infection versus malignancy. New since 02 16 18. Consolidative and bandlike opacity in right upper lobe is also infection versus malignancy. New since 02 16 18. Few 4 and 5 mm nodules in right lower lobe are concerning for metastasis. RADIA
--- NOTE | 2019-11-01 16:11 | PHARMACY PROGRESS NOTE ---
- Best Possible Medication History Admit Date and Time: 11/01/19 1008 Processed by: Pharmacy Medication History completed: Yes Patient Interview: Completed Secondary Source(s): Insurance records As the person ultimately responsible for medication therapy, providers are able to order a medication from an existing home medication list in [facility] via the "Reconcile Routine" prior to Confirmation of that medication by fire support man. Such practice is discouraged except when the physician, in their clinical judgment, deems that a medical need exists for a medication without regard to previous use.
[2019-11-01] MEDS: levoFLOXacin 750 MG/150 ML 750 MG/150 ML BAG IV SCH (18:50)
[2019-11-01] MEDS: ACETAMINOPHEN 325 MG TABLET PO PRN (18:50)
[2019-11-01] MEDS: SODIUM CHLORIDE FLUSH 0.9% 10 ML SYRINGE IVP SCH (18:54)
[2019-11-01] MEDS: FAMOTIDINE 20 MG TABLET PO SCH (20:43)
[2019-11-01] MEDS: guaiFENesin 600 MG TABLET PO SCH (20:43)
[2019-11-01] MEDS: GABAPENTIN 300 MG CAPSULE PO SCH (22:04)
[2019-11-02] MEDS: ACETAMINOPHEN 325 MG TABLET PO PRN ×3 (00:17→20:31)
[2019-11-02] MEDS: SODIUM CHLORIDE FLUSH 0.9% 10 ML SYRINGE IVP SCH ×3 (00:19→16:55)
[2019-11-02 05:11] LABS: HGB - HEMOGLOBIN 13.6 g/dL (12.0-16.0); LYMPHOCYTES # (AUTO) 0.9 10^3/uL (1.5-3.5); LYMPHOCYTES % (AUTO) 13.7 %; MEAN CORPUSCULAR HEMOGLOBIN 30.5 pg (27.0-31.0); MEAN CORPUSCULAR HGB CONC 33.4 g/dL (32.0-36.0); MEAN CORPUSCULAR VOLUME 91.3 fL (81.0-99.0); MEAN PLATELET VOLUME 10.7 fL (7.9-10.8); MONOCYTES # (AUTO) 0.1 10^3/uL (0.0-1.0); MONOCYTES % (AUTO) 2.1 %; NEUTROPHILS # (AUTO) 5.3 10^3/uL (1.5-6.6); NEUTROPHILS % (AUTO) 83.9 %; PLT - PLATELET COUNT 267 10^3/uL (130-450); RED BLOOD COUNT 4.46 10^6/uL (4.20-5.40); RED CELL DISTRIBUTION WIDTH 12.5 % (12.0-15.0); WHITE BLOOD COUNT 6.3 x10^3/uL (4.8-10.8)
[2019-11-02 05:22] LABS: ALBUMIN 3.5 g/dL (3.2-5.5); BILIRUBIN,TOTAL 1.2 mg/dL (0.2-1.0); CALCIUM 8.7 mg/dL (8.5-10.3); CREATININE 0.9 mg/dL (0.4-1.0); MAGNESIUM 1.6 mg/dL (1.7-2.8); TOTAL PROTEIN 6.9 g/dL (6.7-8.2)
[2019-11-02] MEDS: methylPREDNISolone SUCCINATE 40 MG/ML VIAL IVP SCH ×2 (06:37→13:18)
[2019-11-02] MEDS: FUROSEMIDE 20 MG/2 ML VIAL IVP SCH ×3 (06:37→21:59)
[2019-11-02] MEDS: GABAPENTIN 300 MG CAPSULE PO SCH ×3 (06:37→20:25)
[2019-11-02] MEDS: SODIUM CHLORIDE FLUSH 0.9% 10 ML SYRINGE IVP PRN ×3 (06:42→22:01)
[2019-11-02] MEDS ORDERED: ALBUTEROL NEB 2.5 MG/3 ML INH PRN (07:33)
[2019-11-02] MEDS: FLUTICASONE NASAL SPRAY NAS SCH (08:03)
[2019-11-02] MEDS: FAMOTIDINE 20 MG TABLET PO SCH ×2 (08:09→20:24)
[2019-11-02] MEDS: ENOXAPARIN 40 MG/0.4 ML SYRINGE SUBQ SCH (08:09)
[2019-11-02] MEDS: CITALOPRAM 10 MG TABLET PO SCH (08:09)
[2019-11-02] MEDS: guaiFENesin 600 MG TABLET PO SCH ×2 (08:09→20:24)
[2019-11-02] MEDS: ASPIRIN EC 81 MG TABLET PO SCH (08:09)
--- NOTE | 2019-11-02 11:53 | PROVIDER PROGRESS NOTE ---
Assessment/Plan - Problem List (1) Atrial fibrillation with RVR Assessment/Plan: HR dropped to 80-100 overnight, with awakening at 0600 and toileting HR maru to 147. Will transition Cardizem 60 mg po q6h (240 mg daily dose) to a higher total dose and use as Cardizem CD 180 mg bid starting after midnight tonitre. Avoid B-jim due to marked bronchospasm by exam. Her CHADS score =1 (HTN only) therefore 1 daily aspirin will be used as stroke prophylaxis. (2) Allergic reaction to food Assessment/Plan: The CXR today showed no worsening. The fluid status is neg. She is very flushed, which could be due to steroids or an allergic reaction. The lungs sound tighter than yesterday. The patient states this began after eating eggs and sausage for breakfast and had milk, all of which she usually avoids, and she herself thinks she had an allergic reaction to one of those foods. Will add daily Zyrtec. Will add nightly Singulair. Continue steroids, will increase the dose, as this reaction happened despite iv Solumedrol. (3) Acute diastolic heart failure Assessment/Plan: The tachycardia with HFpEF likely put her into CHF. She still has fluid present by exam and by CXR today. Increase Lasix (fron bid to q8h) since she is not better with her WINTERS and orthopnea. Follow I's and O's and daily weight. (4) CAP (community acquired pneumonia) Assessment/Plan: A CXR was ordered due to worsening SOB after breakfast, it showed no worsening, continued infiltrate. Sputum was a good sample without squamous cells and is growing 2 organisms, one is a Gram neg. Continue empiric iv Levoflox for CAP. Continue Mucinex for pulmonary toilet. Will order steroid nebs scheduled and prn bronchodilators. (5) Sarcoidosis Assessment/Plan: Her CXR findings of pericardial effusion, lung nodules plus lymphadenopathy are consistent with a sarcoid flare-up. Will increase Solumedrol from 40 mg iv q8h to 80 mg q8h. In addition, she described what foods she avoids as she may be allergic to them: dailry, nitrates and processed foods. I will add that to her diet order. (6) Pericardial effusion without cardiac tamponade Assessment/Plan: Related to sarcoid flare, most likely. Continue steroids (7) Cor pulmonale Assessment/Plan: As per the Echo done yesterday. Continue diuretics. Continue to manage the pulmonary status, which should slowly help decrease the pulmonary HTN and thereby, the R sided failure. (8) Anasarca Assessment/Plan: Despitre 3L (-) fluid balance she has had minimal improvement in leg edema and feels worse w.r.t. breathing today. Will increase Lasix. (9) Hyponatremia Assessment/Plan: Related to her fluid intake type and Lasix diuresis. The lasix will be increased due to edema She may need a free-water fluid restriction. Follow BMP daily. (10) Shingles Qualifiers: Herpes zoster complications: without complications Qualified Code(s): B02.9 - Zoster without complications Assessment/Plan: Continue the Gabapentin tid which gives her adequate pain control. - Current Meds Current Meds: Current Medications Generic Name Dose Route Start Last Admin Trade Name Freq PRN Reason Stop Dose Admin Acetaminophen 650 mg 11/01/19 10:49 11/02/19 06:40 Tylenol PO 650 mg Q4HR PRN Administration Pain 1 to 4 Aspirin 81 mg 11/01/19 14:03 11/02/19 08:09 Ecotrin PO 81 mg DAILY CHANELLE Administration Citalopram Hydrobromide 40 mg 11/02/19 09:00 11/02/19 08:09 Celexa PO 40 mg DAILY CHANELLE Administration Diltiazem HCl 60 mg 11/01/19 12:00 11/02/19 06:38 Cardizem PO 11/03/19 01:00 60 mg Q6HR CHANELLE Administration Enoxaparin Sodium 40 mg 11/01/19 10:54 11/02/19 08:09 Lovenox SUBQ 40 mg DAILY CHANELLE Administration Famotidine 20 mg 11/01/19 21:00 11/02/19 08:09 Pepcid PO 20 mg BID CHANELLE Administration Fluticasone Propionate 1 sprays 11/02/19 09:00 11/02/19 08:03 Flonase RAN Not Given DAILY CHANELLE Furosemide 20 mg 11/01/19 14:00 11/02/19 06:37 Lasix Inj 20mg Vial IVP 20 mg BIDDIURETIC CHANELLE Administration Gabapentin 600 mg 11/01/19 22:00 11/02/19 06:37 Neurontin PO 600 mg TID CHANELLE Administration Guaifenesin 600 mg 11/01/19 21:00 11/02/19 08:09 Mucinex PO 600 mg BID CHANELLE Administration Levofloxacin 750 mg in 150 mls @ 100 mls/hr 11/01/19 17:00 11/01/19 20:20 Levaquin 750 Mg/150 Ml IV Infused Q24H CHANELLE Infusion Methylprednisolone 40 mg 11/01/19 14:00 11/02/19 06:37 Solu-Medrol (40mg Vial) IVP 40 mg TID CHANELLE Administration Sodium Chloride 10 ml 11/01/19 10:49 11/02/19 06:42 Normal Saline Flush 0.9% IVP 10 ml PRN PRN Administration NEEDED PER PROVIDER ORDERS Sodium Chloride 10 ml 11/01/19 17:00 11/02/19 08:09 Normal Saline Flush 0.9% IVP 10 ml 0100,0900,1700 CHANELLE Administration - Lab Result Fish Bone Diagrams: 11/02/19 04:45 11/02/19 04:45 - Additional Planning My Orders: My Active Orders 11/01/19 10:52 IV Insert [RC] .ONCE 11/01/19 10:54 Enoxaparin [Lovenox] 40 mg SUBQ DAILY 11/01/19 11:00 Echo Transthoracic Complete [ECHO] Routine 11/01/19 12:00 diltiaZEM [Cardizem] 60 mg PO Q6HR 11/01/19 14:00 FUROSEMIDE INJ 20mg VIAL [LASIX INJ 20mg VIAL] 20 mg IVP BIDDIURETIC methylPREDNISolone SUCCINATE [SOLU-Medrol (40MG VIAL)] 40 mg IVP TID 11/01/19 14:03 Aspirin EC [Ecotrin] 81 mg PO DAILY 11/01/19 16:58 O2 [Oxygen Therapy] [RC] .PRN 11/01/19 17:00 Sodium Chloride Flush 0.9% [Normal Saline Flush 0.9%] 10 ml IVP 0100,0900,1700 levoFLOXacin 750 MG/150 ML [Levaquin 750 mg/150 ml] 750 mg in 150 ml IV Q24H 11/01/19 17:35 CUL, RESPIRATORY [RM] Stat 11/01/19 21:00 Famotidine [Pepcid] 20 mg PO BID guaiFENesin [Mucinex] 600 mg PO BID 11/01/19 22:00 Gabapentin [Neurontin] 600 mg PO TID 11/01/19 Lunch Low Sodium Diet [DIET] 11/02/19 06:29 Nebulizer/MDI Tx. [RC] .BID and Q6 PRN 11/02/19 09:00 Citalopram [CeleXA] 40 mg PO DAILY Fluticasone [Flonase] 1 sprays RAN DAILY 11/02/19 11:02 Resp Teach Nebulizer/MDI [RC] .ONCE Levalbuterol [Xopenex] 1.25 mg INH Q4H PRN 11/02/19 11:04 Resp Teach Nebulizer/MDI [RC] .ONCE 11/02/19 12:00 Formoterol Fumarate [Perforomist] 20 mcg INH RTBID 11/02/19 21:00 lisinopriL [Zestril] 10 mg PO QPM 11/03/19 09:00 diltiaZEM CD [Cardizem Cd] 180 mg PO BID Subjective - Subjective Patient Reports: Cough, Shortness of Breath, Other (She felt well yesterday afternoon and overnight when the prednisone was started then was more short of breath after breakfast and she ate eggs and sausage with nitrates which she normally does not eat at home, thinks she may have had an allergic reaction from her food at breakfast) Objective Vital Signs: Vital Signs - 24 hr 11/01/19 11/01/19 11/01/19 13:41 15:27 17:53 Temperature 36.4 C L Heart Rate Heart Rate [ 106 H Brachial] Respiratory 20 Rate Blood Pressure 127/69 128/77 Blood Pressure 126/85 H [Left Brachial artery] O2 Saturation 94 11/01/19 11/02/19 11/02/19 20:46 00:14 00:17 Temperature 36.7 C 36.7 C Heart Rate Heart Rate [ 125 H 113 H Brachial] Respiratory 20 18 Rate Blood Pressure 113/72 Blood Pressure 114/65 113/72 [Left Brachial artery] O2 Saturation 96 95 11/02/19 11/02/19 11/02/19 04:11 06:22 06:38 Temperature 36.6 C 36.7 C Heart Rate 125 H Heart Rate [ 100 Brachial] Respiratory 18 20 Rate Blood Pressure 126/69 Blood Pressure 110/58 L [Left Brachial artery] O2 Saturation 95 96 02/27/20 02/27/20 08:10 08:55 Temperature 36.4 C L Heart Rate Heart Rate [ 125 H 98 Brachial] Respiratory 20 Rate Blood Pressure Blood Pressure 132/74 H 126/77 [Left Brachial artery] O2 Saturation 95 Oxygen O2 Source Nasal cannula I&O (Last 24 Hrs): Intake and Output Totals x24h 10/31/19 11/01/19 11/02/19 23:59 23:59 23:59 Intake Total 550 240 Output Total 2775 600 Balance -2225 -360 General: Alert, Oriented x3 HEENT: Mucous membr. moist/pink, Other (very flushed cheeks) Neck: Supple, No JVD Neuro: Alert, Non Focal Cardiovascular: No murmurs, Other (Irreg) Respiratory: Other (Poor air movement (sounds tight), no wheezing) Abdomen: Normal bowel sounds, Soft Extremities: Other (1+edema to lower thighs, L dorsum of foot very swollen) - Results Results: Laboratory Results WBC 6.3 x10^3/uL (4.8-10.8) 11/02/19 04:45 RBC 4.46 10^6/uL (4.20-5.40) 11/02/19 04:45 Hgb 13.6 g/dL (12.0-16.0) 11/02/19 04:45 Hct 40.7 % (37.0-47.0) 11/02/19 04:45 MCV 91.3 fL (81.0-99.0) 11/02/19 04:45 MCH 30.5 pg (27.0-31.0) 11/02/19 04:45 MCHC 33.4 g/dL (32.0-36.0) 11/02/19 04:45 RDW 12.5 % (12.0-15.0) 11/02/19 04:45 Plt Count 267 10^3/uL (130-450) 11/02/19 04:45 MPV 10.7 fL (7.9-10.8) 11/02/19 04:45 Neut # (Auto) 5.3 10^3/uL (1.5-6.6) 11/02/19 04:45 Lymph # (Auto) 0.9 10^3/uL (1.5-3.5) L 11/02/19 04:45 [place] # (Auto) 0.1 10^3/uL (0.0-1.0) 11/02/19 04:45 Eos # (Auto) 0.0 10^3/uL (0.0-0.7) 11/02/19 04:45 Baso # (Auto) 0.0 10^3/uL (0.0-0.1) 11/02/19 04:45 Absolute Nucleated RBC 0.00 x10^3/uL 11/02/19 04:45 Nucleated RBC % 0.0 /100WBC 11/02/19 04:45 PT 13.3 secs (9.9-12.6) H 11/01/19 08:11 INR 1.2 (0.8-1.2) 11/01/19 08:11 D-Dimer 290.2 ng/mL (200.0-255.0) H 11/01/19 08:11 Sodium 132 mmol/L (135-145) L 11/02/19 04:45 Potassium 4.3 mmol/L (3.5-5.0) 11/02/19 04:45 Chloride 98 mmol/L (101-111) L 11/02/19 04:45 Carbon Dioxide 23 mmol/L (21-32) 11/02/19 04:45 Anion Gap 11.0 (6-13) 11/02/19 04:45 BUN 21 mg/dL (6-20) H 11/02/19 04:45 Creatinine 0.9 mg/dL (0.4-1.0) 11/02/19 04:45 Estimated GFR (MDRD) 61 (>89) L 11/02/19 04:45 Glucose 162 mg/dL (70-100) H 11/02/19 04:45 POC Whole Bld Glucose 193 mg/dL (70 - 100) H 11/02/19 08:57 Calcium 8.7 mg/dL (8.5-10.3) 11/02/19 04:45 Magnesium 1.6 mg/dL (1.7-2.8) L 11/02/19 04:45 Total Bilirubin 1.2 mg/dL (0.2-1.0) H 11/02/19 04:45 AST 21 IU/L (10-42) 11/02/19 04:45 ALT 18 IU/L (10-60) 11/02/19 04:45 Alkaline Phosphatase 59 IU/L (42-121) 11/02/19 04:45 Troponin I High Sens 8.7 ng/L (2.3-14.8) 11/01/19 11:06 B-Natriuretic Peptide 180 pg/mL (5-100) H 11/02/19 04:45 Total Protein 6.9 g/dL (6.7-8.2) 11/02/19 04:45 Albumin 3.5 g/dL (3.2-5.5) 11/02/19 04:45 Globulin 3.4 g/dL (2.1-4.2) 11/02/19 04:45 Albumin/Globulin Ratio 1.0 (1.0-2.2) 11/02/19 04:45 Lipase 32 U/L (22-51) 11/01/19 08:11 TSH 3.00 uIU/mL (0.34-5.60) 11/01/19 08:11 Influenza A (Rapid) Negative (Negative) 11/01/19 18:30 Influenza B (Rapid) Negative (Negative) 11/01/19 18:30 - Procedures Procedures: Procedures LAPAROSCOPIC CHOLECYSTECTOMY (08/25/14) OTHER OPEN UMBILICAL HERNIORRHAPHY (08/25/14)
[2019-11-02] MEDS ORDERED: methylPREDNISolone SUCCINATE 40 MG/ML VIAL IVP STA (13:43)
[2019-11-02] MEDS ORDERED: diphenhydrAMINE 25 MG CAPSULE PO PRN (13:46)
[2019-11-02] MEDS: CETIRIZINE 10 MG TABLET PO SCH (14:29)
--- NOTE | 2019-11-02 14:46 | XRAY Report ---
Reason: Worse SOB Procedure Date: 11/02/2019 Accession Number: [id number] / [id number] Procedure: XR - Chest 1 View X-Ray CPT Code: 91738 Final Report FULL RESULT: EXAM: CHEST RADIOGRAPHY EXAM DATE: 11/02/2019 02:10 PM. CLINICAL HISTORY: Shortness of breath. COMPARISON: CHEST 1 VIEW 11/01/2019 8:01 AM. TECHNIQUE: 1 view. FINDINGS: Lungs/Pleura: Pulmonary vasculature is again noted to be mildly prominent, unchanged. Streaky bandlike opacification in the right upper lung related to scarring/atelectasis is unchanged. Small pleural effusions are likely present. There is no pneumothorax. Mediastinum: Within exam limitations, the cardiomediastinal contour is normal. Other: None. IMPRESSION: No interval change. RADIA
[2019-11-02] MEDS: LEVALBUTEROL 1.25 MG/3 ML NEB INH PRN (14:53)
[2019-11-02] MEDS ORDERED: SODIUM CHLORIDE 0.9% 500 ML ONE (16:41)
[2019-11-02] MEDS: levoFLOXacin 750 MG/150 ML 750 MG/150 ML BAG IV SCH (16:55)
[2019-11-02] MEDS ORDERED: BUDESONIDE 0.5 MG/2 ML NEB INH SCH (19:00)
[2019-11-02] MEDS ORDERED: MAGNESIUM SULFATE 2 GRAM 2 GM/50 ML BAG IV ONE (20:14)
[2019-11-02] MEDS: MONTELUKAST 10 MG TABLET PO SCH (20:24)
[2019-11-02] MEDS ORDERED: lisinopriL 5 MG TABLET PO SCH (21:00)
[2019-11-02] MEDS: methylPREDNISolone SUCCINATE 125 MG/2 ML VIAL IVP SCH (21:58)
[2019-11-02] MEDS ORDERED: IBUPROFEN 400 MG TABLET PO PRN (23:51)
[2019-11-03] MEDS: SODIUM CHLORIDE FLUSH 0.9% 10 ML SYRINGE IVP SCH ×3 (00:10→15:52)
[2019-11-03] MEDS: ACETAMINOPHEN 325 MG TABLET PO PRN ×3 (00:27→21:52)
[2019-11-03] MEDS: methylPREDNISolone SUCCINATE 125 MG/2 ML VIAL IVP SCH ×3 (06:10→21:49)
[2019-11-03] MEDS: FUROSEMIDE 20 MG/2 ML VIAL IVP SCH ×3 (06:10→21:49)
[2019-11-03] MEDS: GABAPENTIN 300 MG CAPSULE PO SCH ×3 (06:10→21:48)
[2019-11-03] MEDS: FORMOTEROL FUMARATE NEB 20 MCG/2 ML INH SCH ×2 (06:17→06:18)
[2019-11-03 07:57] LABS: BASOPHILS % (AUTO) 0.1 %; EOSINOPHILS % (AUTO) 0.1 %; HGB - HEMOGLOBIN 13.9 g/dL (12.0-16.0); LYMPHOCYTES # (AUTO) 0.9 10^3/uL (1.5-3.5); LYMPHOCYTES % (AUTO) 7.6 %; MEAN CORPUSCULAR HEMOGLOBIN 30.8 pg (27.0-31.0); MEAN CORPUSCULAR HGB CONC 33.2 g/dL (32.0-36.0); MEAN CORPUSCULAR VOLUME 92.7 fL (81.0-99.0); MEAN PLATELET VOLUME 10.8 fL (7.9-10.8); MONOCYTES # (AUTO) 0.3 10^3/uL (0.0-1.0); MONOCYTES % (AUTO) 2.8 %; NEUTROPHILS # (AUTO) 10.8 10^3/uL (1.5-6.6); NEUTROPHILS % (AUTO) 88.7 %; PLT - PLATELET COUNT 269 10^3/uL (130-450); RED BLOOD COUNT 4.52 10^6/uL (4.20-5.40); RED CELL DISTRIBUTION WIDTH 12.9 % (12.0-15.0); WHITE BLOOD COUNT 12.2 x10^3/uL (4.8-10.8)
[2019-11-03 08:27] LABS: CREATININE 1.1 mg/dL (0.4-1.0); MAGNESIUM 2.1 mg/dL (1.7-2.8)
[2019-11-03] MEDS ORDERED: BECLOMETHASONE 40 MCG INH SCH (09:00)
[2019-11-03] MEDS: guaiFENesin 600 MG TABLET PO SCH ×2 (09:16→21:52)
[2019-11-03] MEDS: CETIRIZINE 10 MG TABLET PO SCH (09:16)
[2019-11-03] MEDS: ASPIRIN EC 81 MG TABLET PO SCH (09:16)
[2019-11-03] MEDS: ENOXAPARIN 40 MG/0.4 ML SYRINGE SUBQ SCH (09:16)
[2019-11-03] MEDS: FAMOTIDINE 20 MG TABLET PO SCH ×2 (09:16→21:49)
[2019-11-03] MEDS: diltiaZEM CD 180 MG CAPSULE PO SCH ×2 (09:16→21:48)
[2019-11-03] MEDS: CITALOPRAM 10 MG TABLET PO SCH (09:16)
[2019-11-03] MEDS: FLUTICASONE NASAL SPRAY NAS SCH (09:21)
[2019-11-03] MEDS: BUDESONIDE 0.5 MG/2 ML NEB INH SCH ×2 (09:31→19:29)
[2019-11-03] MEDS: LEVALBUTEROL 1.25 MG/3 ML NEB INH PRN ×2 (09:31→19:29)
--- NOTE | 2019-11-03 11:13 | PROVIDER PROGRESS NOTE ---
Assessment/Plan - Problem List (1) Atrial fibrillation with RVR Assessment/Plan: Still has high HRs when walks, up to 150-170. Today her Cardizem dose is to be at max: Cardizem CD 180 bid. She will need additional rate control and may need to use Dig, since using a B- jim may worsen her reactive airway disease. Continue telemetry. CHADS score =1, she is on daily ASA. (2) Reactive airway disease Assessment/Plan: She stated that she "grew out of her childhood asthma" but has been using QVar pre-hospitalization with some benefit. She is still very SOB with walking to the bathroom. She has had no wheezing on any exams but was very "tight" with poor air movement the last 2 days. Today is the first day she has better air movement. Continue O2 n.c. Continue Solumedrol 80 iv tid, but it is giving her tremors and insomnia (Benadryl prn was ordered for sleep). Will start to taper it tomorrow. Continue Xopenex inhaler prn and continue scheduled inhaled steroid Budesonise. She is also on daily Zyrtec and nightly Singulair. (3) CAP (community acquired pneumonia) Assessment/Plan: Her cough is loosening opn Mucinex and inhalers and antibiotics. Sputum cx is growing 2 organisms. Supplemental oxygen continues as well. (4) Acute diastolic heart failure Assessment/Plan: Continue iv Lasix q8h. She needs better heart rate control still, since diastolic heart failure is very rate-dependant. Follow I's and O's and daily weigjhts. Follow BNP, BMP and Mg (5) Pericardial effusion without cardiac tamponade Assessment/Plan: Likely related to sarcoid flare. Today was the first day she had no c/o positional chest pain. Continue steroid management. (6) Sarcoidosis Assessment/Plan: The new lung nodules and lymphadenopathy are likely due to her sarcoid. She is to see a new Patient Observer in November. Continue steroid management. (7) Cor pulmonale Assessment/Plan: As per Echo which showed RV enlargement and pulm HTN with PA pressure 45 mmHg. Likely related to sarcoid lung disease and asthma and the radiation affects to her lungs. Conitnue diuretics. (8) Anasarca Assessment/Plan: She has had 1kg drop in weight and is about 3L (-) in fluid balance. Will start TEDS compression stockings to help the leg edema as well. (9) Hyponatremia Assessment/Plan: Na dropping since here. Will add free-water restriction to her diet orders. (10) Allergic reaction to food Assessment/Plan: Eggs was put on her allergy list, due to yesterday morning's reaction with tight airways. Continue steroids. (11) Shingles Qualifiers: Herpes zoster complications: without complications Qualified Code(s): B02.9 - Zoster without complications Assessment/Plan: She requested that the Gabapentin be scheduled q8h and not tid. - Current Meds Current Meds: Current Medications Generic Name Dose Route Start Last Admin Trade Name Freq PRN Reason Stop Dose Admin Acetaminophen 650 mg 11/01/19 10:49 11/03/19 06:10 Tylenol PO 650 mg Q4HR PRN Administration Pain 1 to 4 Aspirin 81 mg 11/01/19 14:03 11/03/19 09:16 Ecotrin PO 81 mg DAILY CHANELLE Administration Budesonide 0.5 mg 11/03/19 09:02 11/03/19 09:31 Pulmicort INH 0.5 mg RTBID CHANELLE Administration Cetirizine HCl 10 mg 11/02/19 13:42 11/03/19 09:16 Zyrtec PO 10 mg DAILY CHANELLE Administration Diltiazem HCl 180 mg 11/03/19 09:00 11/03/19 09:16 Cardizem Cd PO 180 mg BID CHANELLE Administration Enoxaparin Sodium 40 mg 11/01/19 10:54 11/03/19 09:16 Lovenox SUBQ 40 mg DAILY CHANELLE Administration Famotidine 20 mg 11/01/19 21:00 11/03/19 09:16 Pepcid PO 20 mg BID CHANELLE Administration Fluticasone Propionate 1 sprays 11/02/19 09:00 11/03/19 09:21 Flonase RAN Not Given DAILY CHANELLE Furosemide 20 mg 11/02/19 22:00 11/03/19 06:10 Lasix Inj 20mg Vial IVP 20 mg Q8H CHANELLE Administration Gabapentin 600 mg 11/01/19 22:00 11/03/19 06:10 Neurontin PO 600 mg TID CHANELLE Administration Guaifenesin 600 mg 11/01/19 21:00 11/03/19 09:16 Mucinex PO 600 mg BID CHANELLE Administration Levofloxacin 750 mg in 150 mls @ 100 mls/hr 11/01/19 17:00 11/02/19 18:25 Levaquin 750 Mg/150 Ml IV Infused Q24H CHANELLE Infusion Ibuprofen 400 mg 11/02/19 23:51 11/03/19 00:27 Motrin PO 400 mg Q6HR PRN Administration PAIN Levalbuterol HCl 1.25 mg 11/02/19 11:02 11/03/19 09:31 Xopenex INH 1.25 mg Q4H PRN Administration Shortness of Air/Wheezing Methylprednisolone Sodium Succinate 80 mg 11/02/19 22:00 11/03/19 06:10 Solu-Medrol (125mg Vial) IVP 80 mg TID CHANELLE Administration Montelukast Sodium 10 mg 11/02/19 21:00 11/02/19 20:24 Singulair PO 10 mg QPM CHANELLE Administration Sodium Chloride 10 ml 11/01/19 10:49 11/02/19 22:01 Normal Saline Flush 0.9% IVP 10 ml PRN PRN Administration NEEDED PER PROVIDER ORDERS Sodium Chloride 10 ml 11/01/19 17:00 11/03/19 09:18 Normal Saline Flush 0.9% IVP 10 ml 0100,0900,1700 CHANELLE Administration - Lab Result Fish Bone Diagrams: 11/03/19 07:15 11/03/19 08:05 - Additional Planning My Orders: My Active Orders 11/02/19 11:02 Levalbuterol [Xopenex] 1.25 mg INH Q4H PRN 11/02/19 13:42 Cetirizine [ZyrTEC] 10 mg PO DAILY 11/02/19 13:46 diphenhydrAMINE [Benadryl] 25 mg PO QPM PRN 11/02/19 15:30 Telemetry- [RC] Q4HR 11/02/19 21:00 Montelukast [Singulair] 10 mg PO QPM 11/02/19 22:00 FUROSEMIDE INJ 20mg VIAL [LASIX INJ 20mg VIAL] 20 mg IVP Q8H methylPREDNISolone SUCCINATE [SOLU-Medrol (125MG VIAL)] 80 mg IVP TID 11/03/19 05:00 LIPID Panel [CHEM] Routine 11/03/19 08:26 BRITTNEE Oskar [] QSHIFT 11/03/19 09:00 diltiaZEM CD [Cardizem Cd] 180 mg PO BID 11/03/19 09:02 Resp Teach Nebulizer/MDI [] .ONCE Budesonide [Pulmicort] 0.5 mg INH RTBID 11/04/19 09:00 Citalopram Hydrobromide [Celexa] 40 mg PO DAILY Subjective - Subjective Patient Reports: Feeling Better, Shortness of Breath (Still SOB with walking in her room, on O2 n.c. but able to get deep breaths in.) Nursing Reports: Other (HR rises 150-170 during walk in room.) Objective Vital Signs: Vital Signs - 24 hr 11/02/19 11/02/19 11/02/19 11:51 12:30 12:32 Temperature 36.6 C Heart Rate Heart Rate [ 114 H 128 H Brachial] Respiratory 20 Rate Blood Pressure 129/72 Blood Pressure 123/80 129/72 [Left Brachial artery] O2 Saturation 97 11/02/19 11/02/19 11/02/19 14:54 16:07 17:46 Temperature 36.4 C L Heart Rate 98 Heart Rate [ 112 H Brachial] Respiratory 20 20 Rate Blood Pressure 120/77 Blood Pressure 115/65 [Left Brachial artery] O2 Saturation 98 11/02/19 11/02/19 11/02/19 21:00 22:12 22:19 Temperature 36.5 C Heart Rate Heart Rate [ 92 Brachial] Respiratory 20 23 Rate Blood Pressure Blood Pressure 122/67 [Left Brachial artery] O2 Saturation 96 97 96 11/02/19 11/03/19 11/03/19 23:48 00:09 06:05 Temperature 36.5 C 36.5 C Heart Rate Heart Rate [ 86 109 H Brachial] Respiratory 20 24 Rate Blood Pressure 130/76 Blood Pressure 130/76 129/82 H [Left Brachial artery] O2 Saturation 94 95 11/03/19 11/03/19 07:37 09:31 Temperature 36.4 C L Heart Rate 85 Heart Rate [ 130 H Brachial] Respiratory 20 20 Rate Blood Pressure Blood Pressure 128/88 H [Left Brachial artery] O2 Saturation 94 Oxygen O2 Source Nasal cannula I&O (Last 24 Hrs): Intake and Output Totals x24h 11/01/19 11/02/19 11/03/19 23:59 23:59 23:59 Intake Total 550 1160 736 Output Total 1455 8561 337 Balance -8177 -883 -041 General: Alert, Oriented x3 HEENT: Mucous membr. moist/pink, Other (cheeks flushed) Neuro: Alert, Non Focal Cardiovascular: No murmurs, Other (Irreg) Respiratory: Breath sounds nml Abdomen: Soft, Other (Obese with pannus) Extremities: Other (2+ edema to knees) - Results Results: Laboratory Results WBC 12.2 x10^3/uL (4.8-10.8) H 11/03/19 07:15 RBC 4.52 10^6/uL (4.20-5.40) 11/03/19 07:15 Hgb 13.9 g/dL (12.0-16.0) 11/03/19 07:15 Hct 41.9 % (37.0-47.0) 11/03/19 07:15 MCV 92.7 fL (81.0-99.0) 11/03/19 07:15 MCH 30.8 pg (27.0-31.0) 11/03/19 07:15 MCHC 33.2 g/dL (32.0-36.0) 11/03/19 07:15 RDW 12.9 % (12.0-15.0) 11/03/19 07:15 Plt Count 269 10^3/uL (130-450) 11/03/19 07:15 MPV 10.8 fL (7.9-10.8) 11/03/19 07:15 Neut # (Auto) 10.8 10^3/uL (1.5-6.6) H 11/03/19 07:15 Lymph # (Auto) 0.9 10^3/uL (1.5-3.5) L 11/03/19 07:15 [place] # (Auto) 0.3 10^3/uL (0.0-1.0) 11/03/19 07:15 Eos # (Auto) 0.0 10^3/uL (0.0-0.7) 11/03/19 07:15 Baso # (Auto) 0.0 10^3/uL (0.0-0.1) 11/03/19 07:15 Absolute Nucleated RBC 0.00 x10^3/uL 11/03/19 07:15 Nucleated RBC % 0.0 /100WBC 11/03/19 07:15 PT 13.3 secs (9.9-12.6) H 11/01/19 08:11 INR 1.2 (0.8-1.2) 11/01/19 08:11 D-Dimer 290.2 ng/mL (200.0-255.0) H 11/01/19 08:11 Sodium 131 mmol/L (135-145) L 11/03/19 08:05 Potassium 3.6 mmol/L (3.5-5.0) 11/03/19 08:05 Chloride 93 mmol/L (101-111) L 11/03/19 08:05 Carbon Dioxide 24 mmol/L (21-32) 11/03/19 08:05 Anion Gap 14.0 (6-13) H 11/03/19 08:05 BUN 38 mg/dL (6-20) H 11/03/19 08:05 Creatinine 1.1 mg/dL (0.4-1.0) H 11/03/19 08:05 Estimated GFR (MDRD) 49 (>89) L 11/03/19 08:05 Glucose 165 mg/dL (70-100) H 11/03/19 08:05 POC Whole Bld Glucose 193 mg/dL (70 - 100) H 11/02/19 08:57 Calcium 9.0 mg/dL (8.5-10.3) 11/03/19 08:05 Magnesium 2.1 mg/dL (1.7-2.8) 11/03/19 08:05 Total Bilirubin 1.2 mg/dL (0.2-1.0) H 11/02/19 04:45 AST 21 IU/L (10-42) 11/02/19 04:45 ALT 18 IU/L (10-60) 11/02/19 04:45 Alkaline Phosphatase 59 IU/L (42-121) 11/02/19 04:45 Troponin I High Sens 8.7 ng/L (2.3-14.8) 11/01/19 11:06 B-Natriuretic Peptide 180 pg/mL (5-100) H 11/02/19 04:45 Total Protein 6.9 g/dL (6.7-8.2) 11/02/19 04:45 Albumin 3.5 g/dL (3.2-5.5) 11/02/19 04:45 Globulin 3.4 g/dL (2.1-4.2) 11/02/19 04:45 Albumin/Globulin Ratio 1.0 (1.0-2.2) 11/02/19 04:45 Lipase 32 U/L (22-51) 11/01/19 08:11 TSH 3.00 uIU/mL (0.34-5.60) 11/01/19 08:11 Influenza A (Rapid) Negative (Negative) 11/01/19 18:30 Influenza B (Rapid) Negative (Negative) 11/01/19 18:30 - Procedures Procedures: Procedures LAPAROSCOPIC CHOLECYSTECTOMY (08/25/14) OTHER OPEN UMBILICAL HERNIORRHAPHY (08/25/14)
[2019-11-03 11:31] LABS: CHOL/HDL RATIO 2.7 (<4.4); CHOLESTEROL 173 mg/dL; HDL CHOLESTEROL 63 mg/dL; LDL CHOLESTEROL,CALCULATED 99 mg/dL; LDL/HDL RATIO 1.6 (<4.4); VLDL CHOLESTEROL 11 mg/dL
[2019-11-03] MEDS ORDERED: DIGOXIN 500 MCG/2 ML AMP IVP ONE (15:19)
[2019-11-03] MEDS: levoFLOXacin 750 MG/150 ML 750 MG/150 ML BAG IV SCH (18:01)
[2019-11-03] MEDS: SODIUM CHLORIDE FLUSH 0.9% 10 ML SYRINGE IVP PRN ×2 (18:01→21:53)
[2019-11-03] MEDS ORDERED: DIGOXIN 500 MCG/2 ML AMP IVP SCH (21:00)
[2019-11-03] MEDS: MONTELUKAST 10 MG TABLET PO SCH (21:48)
[2019-11-04] MEDS: SODIUM CHLORIDE FLUSH 0.9% 10 ML SYRINGE IVP SCH ×5 (01:09→23:43)
[2019-11-04 05:22] LABS: EOSINOPHILS % (AUTO) 0.1 %; HGB - HEMOGLOBIN 13.5 g/dL (12.0-16.0); LYMPHOCYTES # (AUTO) 0.8 10^3/uL (1.5-3.5); LYMPHOCYTES % (AUTO) 7.9 %; MEAN CORPUSCULAR HEMOGLOBIN 29.9 pg (27.0-31.0); MEAN CORPUSCULAR HGB CONC 32.8 g/dL (32.0-36.0); MEAN CORPUSCULAR VOLUME 91.1 fL (81.0-99.0); MEAN PLATELET VOLUME 10.7 fL (7.9-10.8); MONOCYTES # (AUTO) 0.4 10^3/uL (0.0-1.0); MONOCYTES % (AUTO) 3.4 %; NEUTROPHILS # (AUTO) 9.1 10^3/uL (1.5-6.6); PLT - PLATELET COUNT 295 10^3/uL (130-450); RED BLOOD COUNT 4.51 10^6/uL (4.20-5.40); RED CELL DISTRIBUTION WIDTH 12.8 % (12.0-15.0); WHITE BLOOD COUNT 10.4 x10^3/uL (4.8-10.8)
[2019-11-04 05:27] LABS: CALCIUM 8.5 mg/dL (8.5-10.3); CREATININE 1.1 mg/dL (0.4-1.0)
[2019-11-04] MEDS: methylPREDNISolone SUCCINATE 125 MG/2 ML VIAL IVP SCH ×3 (06:37→21:39)
[2019-11-04] MEDS: FUROSEMIDE 20 MG/2 ML VIAL IVP SCH ×2 (06:37→13:47)
[2019-11-04] MEDS: GABAPENTIN 300 MG CAPSULE PO SCH ×3 (06:37→21:40)
[2019-11-04] MEDS: SODIUM CHLORIDE FLUSH 0.9% 10 ML SYRINGE IVP PRN ×3 (06:48→21:40)
[2019-11-04] MEDS: LEVALBUTEROL 1.25 MG/3 ML NEB INH PRN ×2 (07:40→19:45)
[2019-11-04] MEDS: BUDESONIDE 0.5 MG/2 ML NEB INH SCH ×2 (07:40→19:45)
[2019-11-04] MEDS: FAMOTIDINE 20 MG TABLET PO SCH ×2 (08:29→20:42)
[2019-11-04] MEDS: CITALOPRAM HYDROBROMIDE 20 MG TABLET PO SCH (08:29)
[2019-11-04] MEDS: ASPIRIN EC 325 MG TABLET PO SCH (08:29)
[2019-11-04] MEDS: CETIRIZINE 10 MG TABLET PO SCH (08:30)
[2019-11-04] MEDS: diltiaZEM CD 180 MG CAPSULE PO SCH ×2 (08:31→20:42)
[2019-11-04] MEDS: DIGOXIN 125 MCG TABLET PO SCH (08:31)
[2019-11-04] MEDS: guaiFENesin 600 MG TABLET PO SCH ×2 (08:31→20:42)
[2019-11-04] MEDS: ENOXAPARIN 40 MG/0.4 ML SYRINGE SUBQ SCH (08:31)
[2019-11-04] MEDS: FLUTICASONE NASAL SPRAY NAS SCH (08:33)
[2019-11-04] MEDS: ACETAMINOPHEN 325 MG TABLET PO PRN ×3 (08:48→21:40)
--- NOTE | 2019-11-04 16:07 | PROVIDER PROGRESS NOTE ---
Assessment/Plan - Problem List (1) Atrial fibrillation with RVR Assessment/Plan: HR is better today, since she got Dig iv yesterday and started on po Dig today, in addition to the Cardizem CD. Will check Dig level in a.m. CHADS score =1, is on aspirin daily. Assess rate control with increased activity, I have asked her to independently ambulate more. (2) Reactive airway disease Assessment/Plan: Clear lungs. Will start to taper iv steroids Continue nebs and Zyrtec and Singulair (3) CAP (community acquired pneumonia) Assessment/Plan: Continue antibiotics. The sputum culture grew only normal leda, no pathogens. Will plan 1 week of antibiotics anf Mucinex for pulmonary toilet. (4) Acute diastolic heart failure Assessment/Plan: She is 5L (-) in fluids balance. BUN/creat has increased to 40/1.1. Will decrease the 3-time a day iv Lasix to iv daily only tomorrow. Assess SOB with increased activity. (5) Pericardial effusion without cardiac tamponade Assessment/Plan: No further c/o pleuritic CP. Continue treatment with steroids. After iv steroids, will use a course of po steroids. (6) Sarcoidosis Assessment/Plan: The lung nodules and lymphadenopathy and pericardial effusion are suspected to b e a flare of her sarcoid. 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 (7) Cor pulmonale Assessment/Plan: Leg danita is gravity dependant for her. The TEDS stockings helped alot. Plan to use every day, on in a.m., off at hs. (8) Anasarca Assessment/Plan: 5L (-) fluid balance since admitted. IV Lasix q8h will be tapered to twice today and once a day starting tomorrow. Will be using po Lasix at [facility]. Today she admitted she was eating prepared food containing alot of salt, for about a month, because she was too fatigued to prepare meals from scratch. I will request a consult from [facility] [employer] [employer], to review restrictions for CHF and Cor pulmonale. (9) Hyponatremia Assessment/Plan: Improved with fluid restrictions plus iv diuresis. (10) Allergic reaction to food Assessment/Plan: She had at admission. (11) Shingles Qualifiers: Herpes zoster complications: without complications Qualified Code(s): B02.9 - Zoster without complications Assessment/Plan: Fairly good pain control on her Gabapentin scheduled q8h doses. - Current Meds Current Meds: Current Medications Generic Name Dose Route Start Last Admin Trade Name Freq PRN Reason Stop Dose Admin Acetaminophen 650 mg 11/01/19 10:49 11/04/19 13:48 Tylenol PO 650 mg Q4HR PRN Administration Pain 1 to 4 Aspirin 325 mg 11/04/19 09:00 11/04/19 08:29 Ecotrin PO 325 mg DAILY CHANELLE Administration Budesonide 0.5 mg 11/03/19 09:02 11/04/19 07:40 Pulmicort INH 0.5 mg RTBID CHANELLE Administration Cetirizine HCl 10 mg 11/02/19 13:42 11/04/19 08:30 Zyrtec PO 10 mg DAILY CHANELLE Administration Citalopram Hydrobromide 40 mg 11/04/19 09:00 11/04/19 08:29 Celexa PO 40 mg DAILY CHANELLE Administration Digoxin 125 mcg 11/04/19 09:00 11/04/19 08:31 Lanoxin PO 125 mcg DAILY CHANELLE Administration Diltiazem HCl 180 mg 11/03/19 09:00 11/04/19 08:31 Cardizem Cd PO 180 mg BID CHANELLE Administration Enoxaparin Sodium 40 mg 11/01/19 10:54 11/04/19 08:31 Lovenox SUBQ 40 mg DAILY CHANELLE Administration Famotidine 20 mg 11/01/19 21:00 11/04/19 08:29 Pepcid PO 20 mg BID CHANELLE Administration Fluticasone Propionate 1 sprays 11/02/19 09:00 11/04/19 08:33 Flonase RAN Not Given DAILY CHANELLE Furosemide 20 mg 11/02/19 22:00 11/04/19 13:47 Lasix Inj 20mg Vial IVP 20 mg Q8H CHANELLE Administration Gabapentin 600 mg 11/03/19 14:00 11/04/19 13:47 Neurontin PO 600 mg Q8H CHANELLE Administration Guaifenesin 600 mg 11/01/19 21:00 11/04/19 08:31 Mucinex PO 600 mg BID CHANELLE Administration Levofloxacin 750 mg in 150 mls @ 100 mls/hr 11/01/19 17:00 11/03/19 19:31 Levaquin 750 Mg/150 Ml IV Infused Q24H CHANELLE Infusion Ibuprofen 400 mg 11/02/19 23:51 11/03/19 00:27 Motrin PO 400 mg Q6HR PRN Administration PAIN Levalbuterol HCl 1.25 mg 11/02/19 11:02 11/04/19 07:40 Xopenex INH 1.25 mg Q4H PRN Administration Shortness of Air/Wheezing Methylprednisolone Sodium Succinate 80 mg 11/02/19 22:00 11/04/19 13:46 Solu-Medrol (125mg Vial) IVP 11/04/19 23:55 80 mg TID CHANELLE Administration Montelukast Sodium 10 mg 11/02/19 21:00 11/03/19 21:48 Singulair PO 10 mg QPM CHANELLE Administration Sodium Chloride 10 ml 11/01/19 10:49 11/04/19 06:48 Normal Saline Flush 0.9% IVP 10 ml PRN PRN Administration NEEDED PER PROVIDER ORDERS Sodium Chloride 10 ml 11/01/19 17:00 11/04/19 13:47 Normal Saline Flush 0.9% IVP 10 ml 0100,0900,1700 CHANELLE Administration - Lab Result Fish Bone Diagrams: 11/04/19 04:35 11/04/19 04:35 - Additional Planning My Orders: My Active Orders 11/04/19 09:00 Aspirin EC [Ecotrin] 325 mg PO DAILY Citalopram Hydrobromide [Celexa] 40 mg PO DAILY Digoxin [Lanoxin] 125 mcg PO DAILY 11/05/19 05:00 DIGOXIN [CHEM] Routine 11/05/19 08:00 methylPREDNISolone SUCCINATE [SOLU-Medrol (40MG VIAL)] 40 mg IVP TID Subjective - Subjective Patient Reports: Feeling Better, Resting Comfortably (Able to eat without feeling overstuffed after just 3 bites.) Objective Vital Signs: Vital Signs - 24 hr 11/03/19 11/03/19 11/03/19 19:29 20:13 21:49 Temperature 36.5 C Heart Rate 98 107 H Heart Rate [ Brachial] Heart Rate [ 122 H Monitoring electrodes] Respiratory 20 18 Rate Blood Pressure 128/89 H [Left Brachial artery] O2 Saturation 95 11/04/19 11/04/19 11/04/19 00:38 04:57 07:40 Temperature 36.5 C 36.5 C Heart Rate 89 Heart Rate [ 100 92 Brachial] Heart Rate [ Monitoring electrodes] Respiratory 20 20 18 Rate Blood Pressure 126/64 115/72 [Left Brachial artery] O2 Saturation 95 94 11/04/19 11/04/19 11/04/19 08:04 12:00 14:08 Temperature 36.4 C L Heart Rate 96 Heart Rate [ 101 H 84 Brachial] Heart Rate [ Monitoring electrodes] Respiratory 16 20 20 Rate Blood Pressure 137/68 H 128/69 [Left Brachial artery] O2 Saturation 96 95 Oxygen O2 Source Nasal cannula I&O (Last 24 Hrs): Intake and Output Totals x24h 11/02/19 11/03/19 11/04/19 23:59 23:59 23:59 Intake Total 1160 6 360 Output Total 1800 2250 2400 Balance -640 General: Alert, Oriented x3 HEENT: Mucous membr. moist/pink, Other (Cheeks less flushed) Neck: Supple, No JVD Neuro: Alert, Non Focal Cardiovascular: No murmurs, Other (Irreg) Respiratory: No respiratory distress, Breath sounds nml Abdomen: Soft, Other (Obese with pannus) Extremities: Other (2+ edema to knees) - Results Results: Laboratory Results WBC 10.4 x10^3/uL (4.8-10.8) 11/04/19 04:35 RBC 4.51 10^6/uL (4.20-5.40) 11/04/19 04:35 Hgb 13.5 g/dL (12.0-16.0) 11/04/19 04:35 Hct 41.1 % (37.0-47.0) 11/04/19 04:35 MCV 91.1 fL (81.0-99.0) 11/04/19 04:35 MCH 29.9 pg (27.0-31.0) 11/04/19 04:35 MCHC 32.8 g/dL (32.0-36.0) 11/04/19 04:35 RDW 12.8 % (12.0-15.0) 11/04/19 04:35 Plt Count 295 10^3/uL (130-450) 11/04/19 04:35 MPV 10.7 fL (7.9-10.8) 11/04/19 04:35 Neut # (Auto) 9.1 10^3/uL (1.5-6.6) H 11/04/19 04:35 Lymph # (Auto) 0.8 10^3/uL (1.5-3.5) L 11/04/19 04:35 [place] # (Auto) 0.4 10^3/uL (0.0-1.0) 11/04/19 04:35 Eos # (Auto) 0.0 10^3/uL (0.0-0.7) 11/04/19 04:35 Baso # (Auto) 0.0 10^3/uL (0.0-0.1) 11/04/19 04:35 Absolute Nucleated RBC 0.00 x10^3/uL 11/04/19 04:35 Nucleated RBC % 0.0 /100WBC 11/04/19 04:35 PT 13.3 secs (9.9-12.6) H 11/01/19 08:11 INR 1.2 (0.8-1.2) 11/01/19 08:11 D-Dimer 290.2 ng/mL (200.0-255.0) H 11/01/19 08:11 Sodium 134 mmol/L (135-145) L 11/04/19 04:35 Potassium 3.6 mmol/L (3.5-5.0) 11/04/19 04:35 Chloride 95 mmol/L (101-111) L 11/04/19 04:35 Carbon Dioxide 26 mmol/L (21-32) 11/04/19 04:35 Anion Gap 13.0 (6-13) 11/04/19 04:35 BUN 42 mg/dL (6-20) H 11/04/19 04:35 Creatinine 1.1 mg/dL (0.4-1.0) H 11/04/19 04:35 Estimated GFR (MDRD) 49 (>89) L 11/04/19 04:35 Glucose 171 mg/dL (70-100) H 11/04/19 04:35 POC Whole Bld Glucose 193 mg/dL (70 - 100) H 11/02/19 08:57 Calcium 8.5 mg/dL (8.5-10.3) 02/29/20 04:35 Magnesium 2.2 mg/dL (1.7-2.8) 11/04/19 04:35 Total Bilirubin 1.2 mg/dL (0.2-1.0) H 11/02/19 04:45 AST 21 IU/L (10-42) 11/02/19 04:45 ALT 18 IU/L (10-60) 11/02/19 04:45 Alkaline Phosphatase 59 IU/L (42-121) 11/02/19 04:45 Troponin I High Sens 8.7 ng/L (2.3-14.8) 11/01/19 11:06 B-Natriuretic Peptide 180 pg/mL (5-100) H 11/02/19 04:45 Total Protein 6.9 g/dL (6.7-8.2) 11/02/19 04:45 Albumin 3.5 g/dL (3.2-5.5) 11/02/19 04:45 Globulin 3.4 g/dL (2.1-4.2) 11/02/19 04:45 Albumin/Globulin Ratio 1.0 (1.0-2.2) 11/02/19 04:45 Triglycerides 55 mg/dL (-149) 11/03/19 08:20 Cholesterol 173 mg/dL (-199) 11/03/19 08:20 LDL Cholesterol, Calc 99 mg/dL (-129) 11/03/19 08:20 VLDL Cholesterol 11 mg/dL 11/03/19 08:20 HDL Cholesterol 63 mg/dL (60-) 11/03/19 08:20 LDL/HDL Ratio 1.6 (<4.4) 11/03/19 08:20 Cholesterol/HDL Ratio 2.7 (<4.4) 11/03/19 08:20 Lipase 32 U/L (22-51) 11/01/19 08:11 TSH 3.00 uIU/mL (0.34-5.60) 11/01/19 08:11 Influenza A (Rapid) Negative (Negative) 11/01/19 18:30 Influenza B (Rapid) Negative (Negative) 11/01/19 18:30 - Procedures Procedures: Procedures LAPAROSCOPIC CHOLECYSTECTOMY (08/25/14) OTHER OPEN UMBILICAL HERNIORRHAPHY (08/25/14)
[2019-11-04] MEDS: levoFLOXacin 750 MG/150 ML 750 MG/150 ML BAG IV SCH (16:56)
[2019-11-04] MEDS: MONTELUKAST 10 MG TABLET PO SCH (20:42)
[2019-11-05] MEDS: ACETAMINOPHEN 325 MG TABLET PO PRN ×2 (02:45→09:02)
[2019-11-05 05:02] LABS: BASOPHILS % (AUTO) 0.1 %; EOSINOPHILS % (AUTO) 0.1 %; HGB - HEMOGLOBIN 14.1 g/dL (12.0-16.0); LYMPHOCYTES # (AUTO) 0.8 10^3/uL (1.5-3.5); LYMPHOCYTES % (AUTO) 8.6 %; MEAN CORPUSCULAR HEMOGLOBIN 30.9 pg (27.0-31.0); MEAN CORPUSCULAR HGB CONC 33.8 g/dL (32.0-36.0); MEAN CORPUSCULAR VOLUME 91.2 fL (81.0-99.0); MEAN PLATELET VOLUME 10.7 fL (7.9-10.8); MONOCYTES # (AUTO) 0.4 10^3/uL (0.0-1.0); MONOCYTES % (AUTO) 4.4 %; NEUTROPHILS # (AUTO) 8.3 10^3/uL (1.5-6.6); NEUTROPHILS % (AUTO) 86.2 %; PLT - PLATELET COUNT 269 10^3/uL (130-450); RED BLOOD COUNT 4.57 10^6/uL (4.20-5.40); RED CELL DISTRIBUTION WIDTH 12.7 % (12.0-15.0); WHITE BLOOD COUNT 9.6 x10^3/uL (4.8-10.8)
[2019-11-05 05:11] LABS: CALCIUM 8.5 mg/dL (8.5-10.3)
[2019-11-05 05:39] LABS: DIGOXIN 0.6 ng/mL
[2019-11-05] MEDS: GABAPENTIN 300 MG CAPSULE PO SCH ×3 (06:16→21:41)
[2019-11-05] MEDS ORDERED: POTASSIUM CHLORIDE 20 MEQ TABLET PO ONE ×2 (08:32→12:00)
[2019-11-05] MEDS: BUDESONIDE 0.5 MG/2 ML NEB INH SCH ×2 (08:50→19:51)
[2019-11-05] MEDS ORDERED: FUROSEMIDE 20 MG/2 ML VIAL IVP SCH (09:00)
[2019-11-05] MEDS: methylPREDNISolone SUCCINATE 40 MG/ML VIAL IVP SCH ×3 (09:02→21:42)
[2019-11-05] MEDS: SODIUM CHLORIDE FLUSH 0.9% 10 ML SYRINGE IVP PRN ×2 (09:03→14:47)
[2019-11-05] MEDS: SODIUM CHLORIDE FLUSH 0.9% 10 ML SYRINGE IVP SCH (09:03)
[2019-11-05] MEDS: CITALOPRAM HYDROBROMIDE 20 MG TABLET PO SCH (09:04)
[2019-11-05] MEDS: ENOXAPARIN 40 MG/0.4 ML SYRINGE SUBQ SCH (09:04)
[2019-11-05] MEDS: DIGOXIN 125 MCG TABLET PO SCH (09:04)
[2019-11-05] MEDS: CETIRIZINE 10 MG TABLET PO SCH (09:05)
[2019-11-05] MEDS: ASPIRIN EC 325 MG TABLET PO SCH (09:05)
[2019-11-05] MEDS: diltiaZEM CD 180 MG CAPSULE PO SCH ×2 (09:05→21:41)
[2019-11-05] MEDS: guaiFENesin 600 MG TABLET PO SCH ×2 (09:05→21:41)
[2019-11-05] MEDS: FAMOTIDINE 20 MG TABLET PO SCH ×2 (09:06→21:41)
[2019-11-05] MEDS: FLUTICASONE NASAL SPRAY NAS SCH (09:21)
[2019-11-05] MEDS ORDERED: levoFLOXacin 250 MG TABLET PO SCH (12:00)
--- NOTE | 2019-11-05 16:40 | PROVIDER PROGRESS NOTE ---
Assessment/Plan - Problem List (1) Atrial fibrillation with RVR Assessment/Plan: The rate is finally controlled using Cadizem CD 180 mg bid and daily po Dig. The Dig level is not toxic. Continue ASA daily. (2) Reactive airway disease Assessment/Plan: Today the steroid iv dose was decreased and she did not worsen. Probable Dch home tomorrow, was discussed with pt, on a steroid taper, on new nebs, new Singulair at , new Zyrtec daytime. Will plan an exercise walk test on the day of DCh, to see if she needs new home O2 ordered. Will also ask for PT to evaluate her before DCh, since she feels that she cannot do the activities she needs to do at home. [facility]PE was also asked today to provide her with caregiver resources, and the son was contacted by [facility] to discuss the help she feels she needs. He is coming to see her tomorrow for 1 day, she reported. (3) CAP (community acquired pneumonia) Assessment/Plan: The sputum cx only grew normal leda. She was transitioned to po Levoflox this a.m. 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 She will need to finish a coutrse of po antibiotics. (4) Acute diastolic heart failure Assessment/Plan: She has had excellent diuresis of 11 lbs of fluid since admitted. Oral Lasix will be started tomorrow. (5) Pericardial effusion without cardiac tamponade Assessment/Plan: The steroid taper plan is also to treat this. 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 Will plan an exercise walk test on the day of DCh, to see if she needs new home O2 ordered. (7) Cor pulmonale Assessment/Plan: Diuresis and heart rate control are the plan, with new meds of Cardizem CD, Dig po and Lasix po. (8) Anasarca Assessment/Plan: Continue Lasix at [facility] (9) Hypokalemia Assessment/Plan: Replace and follow BMP daily (10) Hyponatremia Assessment/Plan: Related to her volume overload and it has improved somewhat since admission. She knows to decrease sipping water. A Video Game Repair Technician consult was ordered for CHF teaching, the RD is back tomorrow (today is Wednesday). (11) Shingles Qualifiers: Herpes zoster complications: without complications Qualified Code(s): B02.9 - Zoster without complications Assessment/Plan: Continue her home Gabapentin dose. - Current Meds Current Meds: Current Medications Generic Name Dose Route Start Last Admin Trade Name Freq PRN Reason Stop Dose Admin Acetaminophen 650 mg 11/01/19 10:49 11/05/19 09:02 Tylenol PO 650 mg Q4HR PRN Administration Pain 1 to 4 Aspirin 325 mg 11/04/19 09:00 11/05/19 09:05 Ecotrin PO 325 mg DAILY CHANELLE Administration Budesonide 0.5 mg 11/03/19 09:02 11/05/19 08:50 Pulmicort INH 0.5 mg RTBID CHANELLE Administration Cetirizine HCl 10 mg 11/02/19 13:42 11/05/19 09:05 Zyrtec PO 10 mg DAILY CHANELLE Administration Citalopram Hydrobromide 40 mg 11/04/19 09:00 11/05/19 09:04 Celexa PO 40 mg DAILY CHANELLE Administration Digoxin 125 mcg 11/04/19 09:00 11/05/19 09:04 Lanoxin PO 125 mcg DAILY CHANELLE Administration Diltiazem HCl 180 mg 11/03/19 09:00 11/05/19 09:05 Cardizem Cd PO 180 mg BID CHANELLE Administration Diphenhydramine HCl 25 mg 11/02/19 13:46 11/05/19 02:47 Benadryl PO 25 mg QPM PRN Administration Insomnia Enoxaparin Sodium 40 mg 11/01/19 10:54 11/05/19 09:04 Lovenox SUBQ 40 mg DAILY CHANELLE Administration Famotidine 20 mg 11/01/19 21:00 11/05/19 09:06 Pepcid PO 20 mg BID CHANELLE Administration Fluticasone Propionate 1 sprays 11/02/19 09:00 11/05/19 09:21 Flonase RAN Not Given DAILY CHANELLE Furosemide 20 mg 11/05/19 09:00 11/05/19 09:03 Lasix Inj 20mg Vial IVP 20 mg DAILY CHANELLE Administration Gabapentin 600 mg 11/03/19 14:00 11/05/19 14:47 Neurontin PO 600 mg Q8H CHANELLE Administration Guaifenesin 600 mg 11/01/19 21:00 11/05/19 09:05 Mucinex PO 600 mg BID CHANELLE Administration Ibuprofen 400 mg 11/02/19 23:51 11/03/19 00:27 Motrin PO 400 mg Q6HR PRN Administration PAIN Levalbuterol HCl 1.25 mg 11/02/19 11:02 11/04/19 19:45 Xopenex INH 1.25 mg Q4H PRN Administration Shortness of Air/Wheezing Levofloxacin 750 mg 11/05/19 12:00 11/05/19 12:44 Levaquin PO 750 mg 1200 CHANELLE Administration Methylprednisolone 40 mg 11/05/19 08:00 11/05/19 14:47 Solu-Medrol (40mg Vial) IVP 40 mg TID CHANELLE Administration Montelukast Sodium 10 mg 11/02/19 21:00 11/04/19 20:42 Singulair PO 10 mg QPM CHANELLE Administration Sodium Chloride 10 ml 11/01/19 10:49 11/05/19 14:47 Normal Saline Flush 0.9% IVP 10 ml PRN PRN Administration NEEDED PER PROVIDER ORDERS Sodium Chloride 10 ml 11/01/19 17:00 11/05/19 09:03 Normal Saline Flush 0.9% IVP 10 ml 0100,0900,1700 CHANELLE Administration - Lab Result Fish Bone Diagrams: 11/05/19 04:15 11/05/19 04:15 - Additional Planning My Orders: My Active Orders 11/04/19 17:02 Dietary [Nutrition Consult] [CONS] Routine 11/05/19 Evaluate and Treat PT [PT] Routine 11/05/19 08:00 methylPREDNISolone SUCCINATE [SOLU-Medrol (40MG VIAL)] 40 mg IVP TID 11/05/19 09:00 FUROSEMIDE INJ 20mg VIAL [LASIX INJ 20mg VIAL] 20 mg IVP DAILY 11/05/19 12:00 levoFLOXacin [Levaquin] 750 mg PO 1200 11/05/19 14:48 Miscellaenous Nursing Order [RC] DAILY Subjective - Subjective Patient Reports: Fatigue, Other (Feels weak, is still SOB with walking, no longer orthopneic (can lay flat), didn't sleep all night worrying about home and work) Objective Vital Signs: Vital Signs - 24 hr 11/04/19 11/04/19 11/04/19 19:45 20:39 23:40 Temperature 36.5 C 36.5 C Heart Rate 87 Heart Rate [ 86 Brachial] Heart Rate [ 76 Monitoring electrodes] Respiratory 18 19 18 Rate Blood Pressure 110/69 127/63 [Left Brachial artery] O2 Saturation 96 95 11/05/19 11/05/19 11/05/19 04:20 07:34 08:50 Temperature 36.7 C 36.4 C L Heart Rate 92 Heart Rate [ 93 Brachial] Heart Rate [ 81 Monitoring electrodes] Respiratory 16 20 20 Rate Blood Pressure 132/76 H 129/72 [Left Brachial artery] O2 Saturation 96 96 11/05/19 11/05/19 08:55 12:38 Temperature 36.3 C L Heart Rate 90 Heart Rate [ 81 Brachial] Heart Rate [ Monitoring electrodes] Respiratory 22 18 Rate Blood Pressure 118/63 [Left Brachial artery] O2 Saturation 96 97 Oxygen O2 Source Nasal cannula I&O (Last 24 Hrs): Intake and Output Totals x24h 11/03/19 11/04/19 11/05/19 23:59 23:59 23:59 Intake Total 2036 1150 940 Output Total 2250 2400 1650 Balance -214 -1250 -710 General: Alert, Oriented x3 HEENT: Mucous membr. moist/pink Neck: Supple, No JVD Neuro: Alert, Non Focal Cardiovascular: Other (Irreg) Respiratory: No respiratory distress, Breath sounds nml, Other (wearing O2 by n.c.) Abdomen: Soft, Other (Obese with pannus) Extremities: Other (1+ edema, L>R) - Results Results: Laboratory Results WBC 9.6 x10^3/uL (4.8-10.8) 11/05/19 04:15 RBC 4.57 10^6/uL (4.20-5.40) 11/05/19 04:15 Hgb 14.1 g/dL (12.0-16.0) 11/05/19 04:15 Hct 41.7 % (37.0-47.0) 11/05/19 04:15 MCV 91.2 fL (81.0-99.0) 11/05/19 04:15 MCH 30.9 pg (27.0-31.0) 11/05/19 04:15 MCHC 33.8 g/dL (32.0-36.0) 11/05/19 04:15 RDW 12.7 % (12.0-15.0) 11/05/19 04:15 Plt Count 269 10^3/uL (130-450) 11/05/19 04:15 MPV 10.7 fL (7.9-10.8) 11/05/19 04:15 Neut # (Auto) 8.3 10^3/uL (1.5-6.6) H 11/05/19 04:15 Lymph # (Auto) 0.8 10^3/uL (1.5-3.5) L 11/05/19 04:15 [place] # (Auto) 0.4 10^3/uL (0.0-1.0) 11/05/19 04:15 Eos # (Auto) 0.0 10^3/uL (0.0-0.7) 11/05/19 04:15 Baso # (Auto) 0.0 10^3/uL (0.0-0.1) 11/05/19 04:15 Absolute Nucleated RBC 0.00 x10^3/uL 11/05/19 04:15 Nucleated RBC % 0.0 /100WBC 11/05/19 04:15 PT 13.3 secs (9.9-12.6) H 11/01/19 08:11 INR 1.2 (0.8-1.2) 11/01/19 08:11 D-Dimer 290.2 ng/mL (200.0-255.0) H 11/01/19 08:11 Sodium 133 mmol/L (135-145) L 11/05/19 04:15 Potassium 3.3 mmol/L (3.5-5.0) L 11/05/19 04:15 Chloride 96 mmol/L (101-111) L 11/05/19 04:15 Carbon Dioxide 27 mmol/L (21-32) 11/05/19 04:15 Anion Gap 10.0 (6-13) 11/05/19 04:15 BUN 43 mg/dL (6-20) H 11/05/19 04:15 Creatinine 1.0 mg/dL (0.4-1.0) 11/05/19 04:15 Estimated GFR (MDRD) 54 (>89) L 11/05/19 04:15 Glucose 177 mg/dL (70-100) H 11/05/19 04:15 POC Whole Bld Glucose 193 mg/dL (70 - 100) H 11/02/19 08:57 Calcium 8.5 mg/dL (8.5-10.3) 11/05/19 04:15 Magnesium 2.2 mg/dL (1.7-2.8) 11/04/19 04:35 Total Bilirubin 1.2 mg/dL (0.2-1.0) H 11/02/19 04:45 AST 21 IU/L (10-42) 11/02/19 04:45 ALT 18 IU/L (10-60) 11/02/19 04:45 Alkaline Phosphatase 59 IU/L (42-121) 11/02/19 04:45 Troponin I High Sens 8.7 ng/L (2.3-14.8) 11/01/19 11:06 B-Natriuretic Peptide 180 pg/mL (5-100) H 11/02/19 04:45 Total Protein 6.9 g/dL (6.7-8.2) 11/02/19 04:45 Albumin 3.5 g/dL (3.2-5.5) 11/02/19 04:45 Globulin 3.4 g/dL (2.1-4.2) 11/02/19 04:45 Albumin/Globulin Ratio 1.0 (1.0-2.2) 11/02/19 04:45 Triglycerides 55 mg/dL (-149) 11/03/19 08:20 Cholesterol 173 mg/dL (-199) 11/03/19 08:20 LDL Cholesterol, Calc 99 mg/dL (-129) 11/03/19 08:20 VLDL Cholesterol 11 mg/dL 11/03/19 08:20 HDL Cholesterol 63 mg/dL (60-) 11/03/19 08:20 LDL/HDL Ratio 1.6 (<4.4) 11/03/19 08:20 Cholesterol/HDL Ratio 2.7 (<4.4) 11/03/19 08:20 Lipase 32 U/L (22-51) 11/01/19 08:11 TSH 3.00 uIU/mL (0.34-5.60) 11/01/19 08:11 Last Dose Date 11/04/19 11/05/19 04:15 Last Dose Time 0900 11/05/19 04:15 Digoxin 0.6 ng/mL 11/05/19 04:15 Influenza A (Rapid) Negative (Negative) 11/01/19 18:30 Influenza B (Rapid) Negative (Negative) 11/01/19 18:30 - Procedures Procedures: Procedures LAPAROSCOPIC CHOLECYSTECTOMY (08/25/14) OTHER OPEN UMBILICAL HERNIORRHAPHY (08/25/14)
--- NOTE | 2019-11-05 18:14 | Discharge Plan ---
Discharge Plan Problem Reviewed?: Yes Disposition: Home, Self Care Condition: Stable Prescriptions: Aspirin EC [Ecotrin] 325 mg PO DAILY #30 tablet Cetirizine [ZyrTEC] 10 mg PO DAILY #30 tablet Digoxin [Lanoxin] 125 mcg PO DAILY #30 tablet diltiaZEM CD [Cardizem Cd] 180 mg PO BID #60 capsule Fluticasone/Salmeterol [Advair 250-50 Diskus] 1 each IH BID #14 blst.w.dev Furosemide [Lasix] 20 mg PO DAILY #30 tablet guaiFENesin [Mucinex] 600 mg PO BID #14 tablet Levalbuterol [Xopenex] 1.25 mg INH TID PRN #28 neb PRN Reason: Shortness Of Air/Wheezing Levofloxacin [Levaquin] 750 mg PO DAILY #3 tablet Methylprednisolone [Medrol Dose Pack] 1 each PO .PACKAGEINSTRUCTIONS 6 Days #1 each Montelukast [Singulair] 10 mg PO QPM #30 tablet Diet: Low Sodium Activity Restrictions: Activity as Tolerated Shower Restrictions: No Driving Restrictions: No Instruction Topics: Fluticasone nasal spray, Dextromethorphan Guaifenesin capsules and ER tablets, Montelukast oral tablets, Cetirizine tablets, Levofloxacin tablets, Levalbuterol inhalation solution, Fluticasone Salmeterol inhalation aerosol, Methylprednisolone tablets, Diltiazem tablets, Furosemide tablets, Heart Failure, Pneumonia, Digoxin, Atrial Fibrillation Dc, Heart Disease Meds, Understanding Pericardial Effusion Health Concerns: You were admitted with severe shortness of breath related to several separate problems. We found you to have a community-acquired pneumonia, pericarditis (fluid in the sac around your heart), worsening of your reactive airway disease, fluid overload in your lungs from diastolic congestive heart failure (stiffening of the heart muscle), and a likely flareup of your lung sarcoidosis. In addition, you are in Afib, which is a new rhythm problem of the heart. You are being sent home with many new medications: to finish your course of antibiotics, to finish a steroid taper, several new lung medications and nebulizers, diuretic medication to use for eliminating fluid, and new medicines to control your heart rate because of the atrial fib. Daily aspirin is ordered for stroke prevention. Stop taking Lisinopril since your new medications are controlling the high blood pressure now. QVar can be restarted eventually. Continue your Citalopram and Gabapentin. You can get [place]tom[place] aspirin if you like; adult dose of 325 mg, coated is preferred. The prescriptions were sent electronically to your pharmacy. Please follow the new medication list. Use the TEDS compression stockings daily to help prevent leg swelling; put them on just after awakening and off at bedtime. You were tested for needing supplemental home oxygen, and you did not drop your oxygen level low enough (that's good!) to qualify for a home oxygen order at this time. If you need help with anxiety, see your PCP for advice and medication adjustments. You should see your PCP for a hospital follow-up visit in 5-10 days. Keep the new upcoming appointment to the Liquor Department Manager. A copy of your chest XRays are being provided for you to bring to the appointment with the Liquor Department Manager. Plan of Treatment: As above. With your pulmonary diagnoses, you qualify to attend pulmonary rehab here at the "[facility]". This needs to be ordered as a referral from your PCP or Liquor Department Manager. Care Goals: Improvement in symptoms and stabilization are the goals. Assessment: The patient understands and was given written instructions to follow. Additional Instructions or Follow Up instructions: If you have new or worsening symptoms, call your PCP or Liquor Department Manager for advice, or come to the Emergency Room. Follow-Up Care: [facility] - Pulmonary No Smoking: If you smoke, Please STOP! Call for help. Follow-up with: Ab Torres MD [Primary Care Provider] -
[2019-11-05] MEDS: LEVALBUTEROL 1.25 MG/3 ML NEB INH PRN (19:51)
[2019-11-05] MEDS: MONTELUKAST 10 MG TABLET PO SCH (21:41)
[2019-11-06] MEDS: SODIUM CHLORIDE FLUSH 0.9% 10 ML SYRINGE IVP SCH ×2 (00:16→10:57)
[2019-11-06] MEDS: ACETAMINOPHEN 325 MG TABLET PO PRN ×2 (00:22→04:41)
[2019-11-06 05:56] LABS: BASOPHILS % (AUTO) 0.1 %; HGB - HEMOGLOBIN 14.5 g/dL (12.0-16.0); LYMPHOCYTES # (AUTO) 0.8 10^3/uL (1.5-3.5); LYMPHOCYTES % (AUTO) 10.4 %; MEAN CORPUSCULAR HEMOGLOBIN 31.6 pg (27.0-31.0); MEAN CORPUSCULAR HGB CONC 34.3 g/dL (32.0-36.0); MEAN CORPUSCULAR VOLUME 92.2 fL (81.0-99.0); MEAN PLATELET VOLUME 10.6 fL (7.9-10.8); MONOCYTES # (AUTO) 0.4 10^3/uL (0.0-1.0); MONOCYTES % (AUTO) 5.6 %; NEUTROPHILS # (AUTO) 6.5 10^3/uL (1.5-6.6); NEUTROPHILS % (AUTO) 83.1 %; PLT - PLATELET COUNT 270 10^3/uL (130-450); RED BLOOD COUNT 4.59 10^6/uL (4.20-5.40); RED CELL DISTRIBUTION WIDTH 12.8 % (12.0-15.0); WHITE BLOOD COUNT 7.8 x10^3/uL (4.8-10.8)
[2019-11-06 06:00] LABS: CALCIUM 8.3 mg/dL (8.5-10.3); CREATININE 1.1 mg/dL (0.4-1.0)
[2019-11-06] MEDS ORDERED: GABAPENTIN 300 MG CAPSULE PO SCH (06:00)
[2019-11-06] MEDS: GABAPENTIN 300 MG CAPSULE PO SCH (06:18)
[2019-11-06] MEDS: methylPREDNISolone SUCCINATE 40 MG/ML VIAL IVP SCH (06:20)
--- NOTE | 2019-11-06 08:16 | XRAY Report ---
Reason: F/U pneumonia and sarcoid nodules Procedure Date: 11/06/2019 Accession Number: [id number] / [id number] Procedure: XR - Chest 2 View X-Ray CPT Code: 47452 Final Report FULL RESULT: EXAM: CHEST RADIOGRAPHY EXAM DATE: 11/06/2019 08:02 AM. CLINICAL HISTORY: Follow up pneumonia and sarcoid nodules. COMPARISON: CHEST 1 VIEW 11/02/2019 1:50 PM, CHEST ANGIO 11/01/2019 12:53 PM, CHEST 1 VIEW 11/01/2019 8:01 AM. TECHNIQUE: 2 views. FINDINGS: Lungs/Pleura: Linear right mid upper lung opacity again seen. There are small pleural effusions. Bibasilar opacities again seen. No pneumothorax. Lung nodules not well visualized radiographically. Mediastinum: Heart size upper normal. Aorta is mildly tortuous. Aortic atherosclerosis. Other: Degenerative changes of the thoracic spine. Surgical clips again seen in the right axilla. IMPRESSION: 1. Bibasilar consolidation/atelectasis and small pleural effusions without significant change. 2. Linear right midlung scarring without significant change. 3. Lung nodule seen on the prior CT not well visualized radiographically. RADIA
[2019-11-06] MEDS: LEVALBUTEROL 1.25 MG/3 ML NEB INH PRN (08:58)
[2019-11-06] MEDS: BUDESONIDE 0.5 MG/2 ML NEB INH SCH (08:58)
[2019-11-06] MEDS ORDERED: methylPREDNISolone SUCCINATE 40 MG/ML VIAL IVP SCH (09:00)
[2019-11-06] MEDS ORDERED: FUROSEMIDE 20 MG TABLET PO SCH (09:00)
[2019-11-06] MEDS: guaiFENesin 600 MG TABLET PO SCH (10:56)
[2019-11-06] MEDS: ENOXAPARIN 40 MG/0.4 ML SYRINGE SUBQ SCH (10:56)
[2019-11-06] MEDS: DIGOXIN 125 MCG TABLET PO SCH (10:56)
[2019-11-06] MEDS: FAMOTIDINE 20 MG TABLET PO SCH (10:56)
[2019-11-06] MEDS: diltiaZEM CD 180 MG CAPSULE PO SCH (10:56)
[2019-11-06] MEDS: CETIRIZINE 10 MG TABLET PO SCH (10:57)
[2019-11-06] MEDS: FLUTICASONE NASAL SPRAY NAS SCH (10:57)
[2019-11-06] MEDS: ASPIRIN EC 325 MG TABLET PO SCH (10:57)
[2019-11-06] MEDS: CITALOPRAM HYDROBROMIDE 20 MG TABLET PO SCH (10:57)
[2019-11-06 12:12] VITALS: BP 138/64
--- NOTE | 2019-11-06 12:44 | DISCHARGE SUMMARY ---
Discharge Summary Admit Date: 11/01/19 Discharge Date: 11/06/19 Discharging Provider: Dr Caryn Salguero Primary Care Provider: Dr René Torres Code Status: Attempt Resuscitation Condition at Discharge: Stable Discharge Disposition: 01 Home, Self Care - DIAGNOSES Admission Diagnoses: 1) Afib with RVR (new onset) 2) Shortness of breath 3) Atypical chest pain for angina 4) Leg edema 5) History of asthma 6) Sarcoidosis 7) History of breast cancer 8) History of HTN 9) Pain associated with Herpes Zoster Discharge Diagnoses with Status of Each Condition: See below - HPI History of Present Illness: This is a 73 y/o white female with a history of asthma in childhood, sarcoidosis with lung nodules and uveitis, diagnosed 10 years ago and she has needed intermittent steroid burst treatment. She has been awaiting a new appointment with Pulmonology pending in about 3 weeks. She also has a history of obesity, HTN, breast cancer 1 years ago for which she had surgery and radiation. She had a bout of Shingles 2 months ago, which is managed with Gabapentin for pain. The pain is at the right upper and lateral abdominal wall. She presented to the ER with severe PND the previous night, then admitted to 2 weeks of orthopnea and leg edema, and 7-8 months of slowly progressive dyspnea on exertion; she went from carrying 40 lb michael of hay into her orchard to being too SOB to vacuum, clean dishes or fold her clothes. She also reported positional chest pain. She lives alone; the closest relative is her son in [place] who is a pie chef. In the ER, she was found to be in Afib with RVR, with heart ate of 140. She had poor air movemenbt/ was tight, had 4+ edema to her upper thighs and was sitting bolt upright. The CXR showed CHF and small bilateral pleural effusions. BNP was mildly elevated at 195. She received iv Cardizem push, and iv Lasix and was initially put in Observation for management. The tachycardia was difficult to control and she was subsequently made an inpatient. - HOSPITAL COURSE Hospital Course: (1) Atrial fibrillation with RVR She was put on Cardizem orally q6h then transitioned to long acting. The rate was finally controlled using Cadizem CD 180 mg bid and daily po Dig. The Dig level was not toxic. Her CHADs score was deemed to be 1, therefore she was started on adult dose ASA daily. On the day of discharge, she asked if she should be on an anticoagulant. The CHADS score and CHADsVASc score were described and discussed with the patient and she was felt to be a candidate for DOAC by the CHADsVASC score, but since her bleeding risk was unknown, any change to DOAC would l be left up to her PCP or (new, upcoming appointment with) Outbound Telemarketing Representative for further management. (2) Reactive airway disease She underwent a CTA chest to rule out a PE. The CTA showed: no PE, a consolidate present in the left lower lobe new since February 2018, consolidate and band-like opacity of the right upper lobe new since February 2018, several 4-5 mm nodules in the right lower lobe. She told us she had "grown out of her childhood asthma" but her exam was consistent with reactive airway disease. She was put on iv steroids and nebulized Xopenex bronchodilator and oral Singulair at , which were continued at discharge. She had very slow improvement in dyspnea here and eventually the iv steroid was decreased then transitioned to oral steroids on a tapering schedule. She was tested for Home O2 and did not desaturate with walking, and PT evaluated her before [facility], since she felt that she could not do the activities she needs to do at home. SW also provided her and the son with caregiver resources. (3) CAP (community acquired pneumonia) The lung imaging was read as having infiltrates, therefore she was treated for a community acquired pneumonia with iv Levofloxacin (due to her listed allergy restrictions). The sputum culture only grew normal leda. She was transitioned to po Levoflox and discharged to take this for several more days. Mucinex was used and also continued after discharge. A PA and Lateral CXR was done on the day of discharge to have a new baseline (for her Outbound Telemarketing Representative), and all the lung imaging Xray and CT reports were provided for her to take to the upcoming Outbound Telemarketing Representative appointment. (4) Acute diastolic heart failure She was kept on iv Lasix and had diuresis of 11 lbs of fluid since admission. Oral Lasix was continued at discharge. An Echo done here showed normal LV contr actility, with LVEF 60% but diastolic dysfunction was presumed. (5) Pericardial effusion without cardiac tamponade The description of right and central chest pain when supine, improved with sitting upright, was consistent with pericarditis. The Echo did confirm a pericardial effusion. This was possibly related to her sarcoid and was treated with iv steroids with the taper planned at discharge. Her chest pain abated. (6) Sarcoidosis Her dyspnea, pericarditis, and possibly the lung nodules and lymphadenopathy could be related to a sarcoid flare. (7) Cor pulmonale The Echo did reveal right heart volume overload. In addition, the Echo showed trace aortic, mitral and tricuspid regurgitation and pulmonary HTN with PA pressure 45 mmHg. Diuresis and heart rate control were the plan for managing this. Her leg edema responded well to diuretics. She was also advised to use compression stockings during the day, off at bedtime. (8) Anasarca As above in #7. (9) Hypokalemia Related to aggressive diuresis, it was placed and the BMP followed daily. (10) Hyponatremia Sodium was 134 at admission, then dropped to 132>> 131>> 133 at discharge, and was possibly related to her volume overload as it improved with diuresis, and she knew to decrease sipping water. A Tanning Drum Operator consult was ordered for CHF teaching. (11) Shingles We needed to continue her home Gabapentin dose for pain control while here. (12) Allergic reaction to food On the morning after admission, after eating eggs and milk for breakfast she became flushed and short of breath and had very tight respirations on exam. She reported that she thought she had an allergy to those to foods and usually avoided them. She got better later in the day with nebs and iv steroid dose increase. (13) Hx HTN Her home Lisinopril was stopped, in order to use diuretics and Cardizem, which were adquate for controlling her blood pressure. (14) Hx of breast cancer She reported that the radiation she got last Spring had resulted in "lung damage". She underwent a CTA chest here to rule out a PE. The CTA showed: no PE, a consolidate present in the left lower lobe new since February 2018 which was infection vs malignancy, also a consolidate and band-like opacity of the right upper lobe new since February 2018 also infection vs malignancy, and several 4-5 mm nodules in the right lower lobe, concerning for metastasis. These extensive findings on CXR and CT imaging reports were provided to her, to take to Pulmonary and other Provider appointments. - ALLERGIES Allergies/Adverse Reactions: Allergies Allergy/AdvReac Type Severity Reaction Status Date / Time egg Allergy Unknown Unknown Verified 11/03/19 09:01 codeine Allergy Hives Verified 09/02/19 00:57 meperidine HCl * Allergy Nausea Verified 09/02/19 00:57 [From Demerol] milk Allergy Unknown Verified 11/02/19 22:46 nitrofurantoin Allergy Itching Verified 09/02/19 00:57 [From Macrobid] Penicillins Allergy Hives Verified 09/02/19 00:57 Stainless Steel Allergy Unknown Verified 11/02/19 07:38 - MEDICATIONS Home Medications: Ambulatory Orders Medication Instructions Recorded Confirmed Fluticasone [Flonase] 1 sprays RAN DAILY PRN 06/14/18 11/01/19 Citalopram Hydrobromide [Celexa] 40 mg PO DAILY 05/23/19 11/01/19 Beclomethasone 40 Mcg [Qvar 40] 0 puffs DAILY 11/01/19 11/01/19 Gabapentin 600 mg PO TID 11/01/19 11/01/19 Aspirin EC [Ecotrin] 325 mg PO DAILY #30 tablet 11/05/19 Cetirizine [ZyrTEC] 10 mg PO DAILY #30 tablet 11/05/19 Digoxin [Lanoxin] 125 mcg PO DAILY #30 tablet 11/05/19 Fluticasone/Salmeterol [Advair 1 each IH BID #14 blst.w.dev 11/05/19 250-50 Diskus] Furosemide [Lasix] 20 mg PO DAILY #30 tablet 11/05/19 Levalbuterol [Xopenex] 1.25 mg INH TID PRN #28 neb 11/05/19 Methylprednisolone [Medrol Dose 1 each PO .PACKAGEINSTRUCTIONS 6 11/05/19 Pack] Days #1 each Montelukast [Singulair] 10 mg PO QPM #30 tablet 11/05/19 diltiaZEM CD [Cardizem Cd] 180 mg PO BID #60 capsule 11/05/19 guaiFENesin [Mucinex] 600 mg PO BID #14 tablet 11/05/19 Levofloxacin [Levaquin] 750 mg PO DAILY #3 tablet 11/06/19 - PHYSICAL EXAM AT DISCHARGE General Appearance: positive: No acute distress, Alert Eyes Bilateral: positive: Normal inspection, EOMI ENT: positive: ENT inspection nml, No signs of dehydration Neck: positive: Nml inspection, Thyroid nml, No JVD Respiratory: positive: No respiratory distress, Breath sounds nml Cardiovascular: positive: No murmur, Irregularly irregular Abdomen: positive: Non-tender, Other (Obese with pannus) Extremities: positive: Non-tender, Other (Trace right edema, 1+ left pedal edma) Neurologic/Psychiatric: positive: Oriented x3, Other (Non-focal) - LABS Result Diagrams: 11/06/19 05:27 11/06/19 05:27 - DIAGNOSTIC IMAGING Diagnostic Imaging Results: Final report reviewed - FOLLOW UP Follow Up: Outbound Telemarketing Representative appointment is upcoming in 3 weeks. See PCP in the next 5-7 days for hospital follow-up. - TIME SPENT Time Spent in Discharge (Minutes): 75
--- NOTE | 2019-11-06 16:41 | ADVANCE CARE PLANNING NOTE ---
Advance Care Planning - Planning Encounter Date: 11/06/19 Time: 10:00 Purpose: To discuss her wishes regarding Afib management. Parties in Attendance: I spoke to the patient in her room, and at bedside was the son Kane and his 2 young children. Decisional Capacity of the Patient: She has full decisional capacity. - Diagnosis for Encounter (1) Atrial fibrillation with RVR Summary: A. fib is new onset for this patient. She did not feel any palpitations therefore it is not known how long she has been in it. - Encounter Subjective/Patient's Story: This patient lives alone, is from her first and her second has . She presented with a prolonged history of worsening shortness of breath and has a remote history of sarcoidosis and asthma. Objective/Medical Story: Patient presented with multiple reasons to be dyspneic: Recurrent pneumonia, reactive airway disease exacerbation, pericarditis, new CHF from diastolic heart failure and A. fib with RVR. Goals of Care: I reviewed in detail the diagnosis of A. fib and the reasons for stroke prevention and how decisions are made regarding anticoagulation versus aspirin treatment. I gave the patient a copy of the CHADSscore and how it is calculated. I gave patient a copy of the CHADsVASC score and how it is calculated. Patient scored a 1 by the CHADSscore, indicating that aspirin treatment is appropriate. The patient scored a 3 on the CHADsVASC score, indicating that anticoagulation is appropriate. I described that since we do not know her bleeding risk or past history of bleeding, I would leave it up to her PCP and or Welding Machine Operator [employer]merged [employer] to change the choice of treatment from 1 adult dose aspirin daily to an anticoagulant, if they feel it is more appropriate. The patient was agreeable with this plan. She has an appointment to see her PCP this week. She has an appointment to see her new dry goods inspector in 3 weeks. Plan: Continue a daily Aspirin for stroke prophylaxis. Code Status: Attempt Resuscitation Time spent on advance care plannin min
== END 2019-11-06 14:20 | disposition home or self-care (01) | DRG 193 ==
LOC: ED 07:47 → MS2 10:08 → OBSVTOIN 16:36
PROVIDERS: ADMIT Internal Medicine; ATTEND Internal Medicine
DX: J18.9 Pneumonia, unspecified organism (principal); I50.31 Acute diastolic (congestive) heart failure; I50.9 Heart failure, unspecified; R07.89 Other chest pain; E87.1 Hypo-osmolality and hyponatremia; J45.909 Unspecified asthma, uncomplicated; J45.901 Unspecified asthma with (acute) exacerbation; I11.0 Hypertensive heart disease with heart failure; F32.9 Major depressive disorder, single episode, unspecified; J70.1 Chronic and other pulmonary manifestations due to radiation; I48.91 Unspecified atrial fibrillation; D86.89 Sarcoidosis of other sites; Z82.49 Family history of ischemic heart disease and other diseases of the circulatory system; Z83.6 Family history of other diseases of the respiratory system; Z87.891 Personal history of nicotine dependence; Z86.19 Personal history of other infectious and parasitic diseases; I27.81 Cor pulmonale (chronic); I08.3 Combined rheumatic disorders of mitral, aortic and tricuspid valves; I27.20 Pulmonary hypertension, unspecified; E87.6 Hypokalemia; T78.1XXA Other adverse food reactions, not elsewhere classified, initial encounter; R23.2 Flushing; G25.1 Drug-induced tremor; G47.00 Insomnia, unspecified; T38.0X5A Adverse effect of glucocorticoids and synthetic analogues, initial encounter; T50.1X5A Adverse effect of loop [high-ceiling] diuretics, initial encounter; Y92.230 Patient room in hospital as the place of occurrence of the external cause; Y84.2 Radiological procedure and radiotherapy as the cause of abnormal reaction of the patient, or of later complication, without mention of misadventure at the time of the procedure; B02.9 Zoster without complications; Z85.3 Personal history of malignant neoplasm of breast; Z79.899 Other long term (current) drug therapy; Z79.51 Long term (current) use of inhaled steroids
CPT/HCPCS: 36415; 71045; 71046; 71275; 80048; 80053; 80061; 80162; 83690; 83735; 83880; 84443; 84484; 85025; 85379; 85610; 87070; 87205; 87275; 87276; 93005; 93306; 94640; 94761; 96372; 96374; 96375; 97161; 99284; 99285; A9270; G0378; J1650; J7626; J8499; Q9967; 83721

== ENCOUNTER 2019-12-28 21:23 | Outpatient (CLI) | payer MEDICARE | END 2019-12-28 23:59 | disposition short-term general hospital (02) | LOC: EMS 21:23 | PROVIDERS: ATTEND Surgery | DX: R00.0 Tachycardia, unspecified (principal); R06.00 Dyspnea, unspecified | CPT/HCPCS: A0425; A0427 ==

== ENCOUNTER 2020-01-10 17:49 | Outpatient (CLI) | payer MEDICARE | END 2020-01-10 23:59 | disposition short-term general hospital (02) | LOC: EMS 17:49 | PROVIDERS: ATTEND Surgery | DX: R53.1 Weakness (principal); R06.02 Shortness of breath; R32 Unspecified urinary incontinence; R15.9 Full incontinence of feces | CPT/HCPCS: A0425; A0429 ==